=== PATIENT | female | born 1945 | race Caucasian/White ===

== ENCOUNTER 2019-04-02 15:40 | Inpatient (IN) | payer MEDICARE ==
--- NOTE | 2019-04-02 16:02 | ER Document Report ---
ED General - General Stated Complaint: ALTERED MENTAL STATUS Time Seen by Provider: 04/02/19 15:55 - HPI Notes: Patient is a 73-year-old female that presents to the emergency department for chief complaint of altered mental status. Patient arrived by EMS. Patient's is assisting with HPI. He states today she has had 3 near syncopal episodes. He does not believe she completely lost consciousness but he states that all 3 times she collapsed down onto a chair. He states her eyes rolled back in her head and she was not responding to shaking her for a few seconds. Patient then came to without postictal state, seizure activity or incontinence. states she was discharged about a week ago from hospitalization at [facility] in [facility] where she was treated for pneumonia. She wears 3 L oxygen over her tracheostomy daily and EMS states when they arrived she was 82% on these home 3 L. Patient is able to shake her head yes and no to answer questions now and states she has been feeling short of breath and more swollen recently. She denied any chest pain, fever, palpitations, abdominal pain, nausea, vomiting or diarrhea. She does not recall the syncopal episodes. EMS also states patient was difficult to wake with painful stimuli when they first arrived but while in route she improved in her mentation. Past Medical History: Reviewed in chart Past Surgical History: Tracheostomy Social History: Lives at home with family Family History: Reviewed and noncontributory for presenting illness Allergies: Reviewed, see documented allergy list. REVIEW OF SYSTEMS: CONSTITUTIONAL : No fever No chills No diaphoresis No recent illness EENT: No vision changes No congestion No sore throat CARDIOVASCULAR: No chest pain No palpitations Edema Syncope RESPIRATORY: shortness of breath No cough edema difficulty breathing GASTROINTESTINAL: No abdominal pain No nausea No vomiting No diarrhea GENITOURINARY: No dysuria No hematuria No difficulty urinating MUSCULOSKELETAL: No back pain No leg pain No arm pain SKIN: No rashes No lesions LYMPHATIC: No swollen, enlarged glands. NEUROLOGICAL: No lightheadedness No headache No weakness No paresthesias PSYCHIATRIC: No anxiety No depression PHYSICAL EXAMINATION: Vital signs reviewed, nursing noted reviewed. GENERAL: alert, ill-appearing, well-nourished and in no acute distress. HEAD: Atraumatic, normocephalic. EYES: Eyes appear normal, extraocular movements intact, sclera anicteric, c onjunctiva are normal. ENT: nares patent, oropharynx clear without exudates. Mildly dry mucous mem branes. NECK: Normal range of motion, supple without lymphadenopathy, tracheostomy patent without bleeding or drainage LUNGS: Breath sounds diminished to auscultation bilaterally, left diminished gr eater than right. Mild tachypnea without accessory muscle use or retractions HEART: Regular rate and rhythm without murmurs ABDOMEN: Soft, nontender, normoactive bowel sounds. No rebound, guarding, or rigidity. No masses appreciated. EXTREMITIES: Nontender, good range of motion, 3+ pitting edema bilateral lower extremities, symmetric. NEUROLOGICAL: No focal neurological deficits. Moves all extremities spontaneously Motor and sensory grossly intact on exam. PSYCH: Normal mood, normal affect. SKIN: Warm, Dry, normal turgor, no rashes or lesions noted on exposed skin - Related Data Allergies/Adverse Reactions: iodine Allergy (Verified 04/02/19 16:47) Past Medical History - Social History Smoking Status: Unknown if Ever Smoked Family History: Reviewed & Not Pertinent Physical Exam - Vital signs Vitals: Resp 11 L 04/02/19 15:45 Course - Re-evaluation Re-evalutation: 04/02/19 17:02 Vitals reviewed. Nursing notes reviewed. Patient is alert and shaking her head yes and no to questions. She is not verbal because of her tracheostomy. Patient was hypoxic at 82% on her home 3 L and was placed on tracheostomy mask in the ED. ABG shows no significant hypoxia or acid-base disturbance. Patient is meeting sepsis criteria with a white count of 16, tachypnea, and left lower lobe pneumonia on chest x-ray. She was given Rocephin and azithromycin for her pneumonia. Blood cultures have been obtained. Her lactic acid is normal. Patient has had a few low blood pressure readings however with repositioning of the blood pressure cuff with a have improved. She will receive IV fluid bolus for her sepsis. Patient's tracheostomy was suctioned which improved her work of breathing. Her EKG shows frequent ectopy and she has a slight elevation in her troponin at 0.066. The elevated troponin may be secondary to renal insufficiency or hypoxia. She has not had complaint of chest pain. Patient will be admitted to the hospital for further care. Her case was discussed with Dr. Peng who accepts admission. She is stable at time of admission. Laboratory 04/02/19 04/02/19 04/02/19 15:48 15:48 15:48 WBC 16.5 H RBC 5.62 H Hgb 10.1 L Hct 35.0 L MCV 62 L MCH 18.0 L MCHC 28.9 L RDW 33.5 H Plt Count 347 Lymph % (Auto) Not Reportable Glenn % (Auto) Not Reportable Eos % (Auto) Not Reportable Baso % (Auto) Not Reportable Absolute Neuts (auto) Not Reportable Absolute Lymphs (auto) Not Reportable Absolute Monos (auto) Not Reportable Absolute Eos (auto) Not Reportable Absolute Basos (auto) Not Reportable Total Counted 100 Seg Neutrophils % Not Reportable Seg Neuts % (Manual) 80 H Lymphocytes % (Manual) 6 L Monocytes % (Manual) 14 H Eosinophils % (Manual) 0 Basophils % (Manual) 0 Abs Neuts (Manual) 13.2 H Abs Lymphs (Manual) 1.0 Abs Monocytes (Manual) 2.3 H Absolute Eos (Manual) 0.0 Abs Basophils (Manual) 0.0 Toxic Vacuolation PRESENT Clumped Platelets PRESENT Platelet Comment ADEQUATE Hypochromasia 1+ Anisocytosis 3+ Microcytosis 3+ Target Cells 1+ Tear Drop Cells SLIGHT PT 14.2 INR 1.10 Carbonic Acid HCO3/H2CO3 Ratio ABG pH ABG pCO2 ABG pO2 ABG HCO3 ABG Total CO2 ABG O2 Saturation ABG Base Excess FiO2 Sodium 132.4 L Potassium 4.2 Chloride 97 L Carbon Dioxide 29 Anion Gap 6 BUN 53 H Creatinine 1.38 H Est GFR ( Amer) 45 L Est GFR (MDRD) Non-Af 37 L Glucose 83 POC Glucose Lactic Acid Calcium 9.1 Total Bilirubin 0.7 Direct Bilirubin 0.1 Neonat Total Bilirubin Not Reportable Neonat Direct Bilirubin Not Reportable Neonat Indirect Bili Not Reportable AST 31 ALT 21 Alkaline Phosphatase 40 Troponin I Total Protein 5.4 L Albumin 3.3 L 04/02/19 04/02/19 04/02/19 15:48 15:48 15:48 WBC RBC Hgb Hct MCV MCH MCHC RDW Plt Count Lymph % (Auto) Glenn % (Auto) Eos % (Auto) Baso % (Auto) Absolute Neuts (auto) Absolute Lymphs (auto) Absolute Monos (auto) Absolute Eos (auto) Absolute Basos (auto) Total Counted Seg Neutrophils % Seg Neuts % (Manual) Lymphocytes % (Manual) Monocytes % (Manual) Eosinophils % (Manual) Basophils % (Manual) Abs Neuts (Manual) Abs Lymphs (Manual) Abs Monocytes (Manual) Absolute Eos (Manual) Abs Basophils (Manual) Toxic Vacuolation Clumped Platelets Platelet Comment Hypochromasia Anisocytosis Microcytosis Target Cells Tear Drop Cells PT INR Carbonic Acid 1.18 HCO3/H2CO3 Ratio 21:1 ABG pH 7.43 ABG pCO2 39.3 ABG pO2 113.7 H ABG HCO3 25.6 H ABG Total CO2 26.8 H ABG O2 Saturation 98.3 H ABG Base Excess 1.3 FiO2 11L Sodium Potassium Chloride Carbon Dioxide Anion Gap BUN Creatinine Est GFR ( Amer) Est GFR (MDRD) Non-Af Glucose POC Glucose Lactic Acid 1.9 Calcium Total Bilirubin Direct Bilirubin Neonat Total Bilirubin Neonat Direct Bilirubin Neonat Indirect Bili AST ALT Alkaline Phosphatase Troponin I 0.066 Total Protein Albumin 04/02/19 16:08 WBC RBC Hgb Hct MCV MCH MCHC RDW Plt Count Lymph % (Auto) Glenn % (Auto) Eos % (Auto) Baso % (Auto) Absolute Neuts (auto) Absolute Lymphs (auto) Absolute Monos (auto) Absolute Eos (auto) Absolute Basos (auto) Total Counted Seg Neutrophils % Seg Neuts % (Manual) Lymphocytes % (Manual) Monocytes % (Manual) Eosinophils % (Manual) Basophils % (Manual) Abs Neuts (Manual) Abs Lymphs (Manual) Abs Monocytes (Manual) Absolute Eos (Manual) Abs Basophils (Manual) Toxic Vacuolation Clumped Platelets Platelet Comment Hypochromasia Anisocytosis Microcytosis Target Cells Tear Drop Cells PT INR Carbonic Acid HCO3/H2CO3 Ratio ABG pH ABG pCO2 ABG pO2 ABG HCO3 ABG Total CO2 ABG O2 Saturation ABG Base Excess FiO2 Sodium Potassium Chloride Carbon Dioxide Anion Gap BUN Creatinine Est GFR ( Amer) Est GFR (MDRD) Non-Af Glucose POC Glucose 96 Lactic Acid Calcium Total Bilirubin Direct Bilirubin Neonat Total Bilirubin Neonat Direct Bilirubin Neonat Indirect Bili AST ALT Alkaline Phosphatase Troponin I Total Protein Albumin Chest X-Ray 04/02/19 15:56 IMPRESSION: Heterogeneous opacity of the left lung base, which may reflect scarring or atelectasis as well as acute airspace disease. Cardiomegaly. - Vital Signs Vital signs: Temp Pulse Resp BP Pulse Ox 97.5 F 21 H 127/54 H 94 04/02/19 15:47 04/02/19 16:31 04/02/19 16:16 04/02/19 16:30 - Laboratory Result Diagrams: 04/02/19 15:48 04/02/19 15:48 Laboratory results interpreted by me: 04/02/19 04/02/19 04/02/19 15:48 15:48 15:48 WBC 16.5 H RBC 5.62 H Hgb 10.1 L Hct 35.0 L MCV 62 L MCH 18.0 L MCHC 28.9 L RDW 33.5 H Seg Neuts % (Manual) 80 H Lymphocytes % (Manual) 6 L Monocytes % (Manual) 14 H Abs Neuts (Manual) 13.2 H Abs Monocytes (Manual) 2.3 H ABG pO2 113.7 H ABG HCO3 25.6 H ABG Total CO2 26.8 H ABG O2 Saturation 98.3 H Sodium 132.4 L Chloride 97 L BUN 53 H Creatinine 1.38 H Est GFR ( Amer) 45 L Est GFR (MDRD) Non-Af 37 L Total Protein 5.4 L Albumin 3.3 L - EKG Interpretation by Me Additional EKG results interpreted by me: 04/02/19 16:02 Interpreted by myself Normal sinus rhythm, rate 80, frequent PVCs, no STEMI Discharge - Discharge Clinical Impression: Elevated troponin, Syncope and collapse, JOEL (acute kidney injury), Hyponatremia Pneumonia Qualifiers: Pneumonia type: due to unspecified organism Laterality: left Lung location: lower lobe of lung Qualified Code(s): J18.1 - Lobar pneumonia, unspecified organism Sepsis Qualifiers: Sepsis type: sepsis due to unspecified organism Sepsis acute organ dysfunction status: unspecified Qualified Code(s): A41.9 - Sepsis, unspecified organism Anemia Qualifiers: Anemia type: other cause Other causes of anemia: other cause, not classified Qualified Code(s): D64.89 - Other specified anemias Condition: Stable Disposition: ADMITTED INPATIENT Admitting Provider: Ginette (Hospitalist) Unit Admitted: [facility]
[2019-04-02 16:15] LABS: HEMOGLOBIN 10.1 g/dL (12.0-15.5); MEAN CORPUSCULAR HGB CONC 28.9 g/dL (32.0-36.0); PROTHROMBIN TIME 14.2 SEC (11.4-15.4); RED BLOOD COUNT 5.62 10^6/uL (3.72-5.28); RED CELL DISTRIBUTION WIDTH 33.5 % (11.5-14.0); WHITE BLOOD COUNT 16.5 10^3/uL (4.0-10.5)
[2019-04-02 16:29] LABS: ALBUMIN 3.3 g/dL (3.5-5.0); ALKALINE PHOSPHATASE 40 U/L (38-126); ANION GAP 6 (5-19); ASPARTATE AMINO TRANSFERASE 31 U/L (14-36); BILIRUBIN,DIRECT 0.1 mg/dL (0.0-0.4); BILIRUBIN,TOTAL 0.7 mg/dL (0.2-1.3); BLOOD UREA NITROGEN 53 mg/dL (7-20); CALCIUM 9.1 mg/dL (8.4-10.2); CARBON DIOXIDE 29 mmol/L (22-30); CHLORIDE 97 mmol/L (98-107); GLUCOSE 83 mg/dL (75-110); POTASSIUM 4.2 mmol/L (3.6-5.0); TOTAL PROTEIN 5.4 g/dL (6.3-8.2)
[2019-04-02 16:31] LABS: MEAN CORPUSCULAR VOLUME 62 fl (80-97)
--- NOTE | 2019-04-02 16:34 | RADIOLOGY REPORT (SQ) ---
EXAM DESCRIPTION: CHEST SINGLE VIEW COMPLETED DATE/TIME: 04/02/2019 4:21 pm REASON FOR STUDY: hypoxia COMPARISON: None. EXAM PARAMETERS: NUMBER OF VIEWS: One view. TECHNIQUE: Single frontal radiographic view of the chest acquired. RADIATION DOSE: NA LIMITATIONS: None. FINDINGS: LUNGS AND PLEURA: Heterogeneous opacity of the left lung base, which may reflect scarring or atelectasis as well as acute airspace disease. MEDIASTINUM AND HILAR STRUCTURES: No masses. Contour normal. HEART AND VASCULAR STRUCTURES: Cardiomegaly. BONES: No acute findings. HARDWARE: None in the chest. OTHER: No other significant finding. IMPRESSION: Heterogeneous opacity of the left lung base, which may reflect scarring or atelectasis a s well as acute airspace disease. Cardiomegaly. TECHNICAL DOCUMENTATION: JOB ID: [id number] [employer] All Rights Reserved Reading location - IP/workstation name: [email or web address]
[2019-04-02 16:35] LABS: ABSOLUTE MONOCYTES # (MANUAL) 2.3 10^3/uL (0.1-1.4); BASOPHILS % (MANUAL) 0 % (0-2); EOSINOPHILS % (MANUAL) 0 % (0-6); LYMPHOCYTES % (MANUAL) 6 % (13-45); MONOCYTES % (MANUAL) 14 % (3-13); SEGMENTED NEUTROPHILS % (MAN) 80 % (42-78); TOTAL CELLS COUNTED 100
[2019-04-02 16:39] LABS: ANISOCYTOSIS 3+; HYPOCHROMASIA 1+
[2019-04-02 16:40] LABS: PLATELET CLUMPS PRESENT; PLATELET COMMENT ADEQUATE; TARGET CELLS 1+; TOXIC VACUOLATION PRESENT
[2019-04-02 16:41] LABS: PLATELET COUNT 347 10^3/uL (150-450); TEAR DROP CELLS SLIGHT
[2019-04-02 16:43] LABS: ARTERIAL BLOOD BASE EXCESS 1.3 mmol/L; ARTERIAL BLOOD FIO2 11L; ARTERIAL BLOOD H2CO3 1.18 mmol/L (1.05-1.35); ARTERIAL BLOOD HCO3 25.6 mmol/L (20-24); ARTERIAL BLOOD O2 SATURATION 98.3 % (94-98); ARTERIAL BLOOD PCO2 39.3 mmHg (35-45); ARTERIAL BLOOD PH 7.43 (7.35-7.45); ARTERIAL BLOOD PO2 113.7 mmHg (80-100); ARTERIAL BLOOD TOTAL CO2 26.8 mmol/L (21-25)
[2019-04-02] MEDS ORDERED: ASPIRIN 81 MG TABLET, CHEWABLE PO ONE (16:49)
[2019-04-02] MEDS ORDERED: CEFTRIAXONE INJ 1000 MG VIAL IV ONE (16:50)
[2019-04-02] MEDS ORDERED: AZITHROMYCIN INJ 500 MG VIAL IV ONE (16:50)
[2019-04-02] MEDS ORDERED: NORMAL SALINE 1000 ML 1,000 ML IV ONE ×2 (16:57→17:01)
[2019-04-02] MEDS ORDERED: VANCOMYCIN HCL 0 MG in DEXTROSE 5%-WATER 250 ML IV NR (17:45)
[2019-04-02 17:46] LABS: APPEARANCE,URINE SLIGHTLY-CLOUDY; BILIRUBIN,URINE NEGATIVE (NEGATIVE); COLOR,URINE YELLOW; GLUCOSE, URINE NEGATIVE (NEGATIVE); KETONES,URINE NEGATIVE (NEGATIVE); LEUKOCYTE ESTERASE,URINE NEGATIVE (NEGATIVE); NITRITE,URINE NEGATIVE (NEGATIVE); PROTEIN,URINE NEGATIVE (NEGATIVE); URINE SPECIFIC GRAVITY 1.016; UROBILINOGEN,URINE NEGATIVE mg/dL (<2.0)
--- NOTE | 2019-04-02 18:23 | PDOC H&P ---
History of Present Illness Admission Date/PCP: 04/02/19 17:21 LAKISHA MORRIS MD Patient complains of: lethargy, presyncope History of Present Illness: LUZ MARIA OAKLEY is a 73 year old female with a past medical history of chronic respiratory failure, has a tracheostomy for a history of throat cancer, history of right lung cancer and another unrecalled cancer, hypertension and COPD who was brought in due to presyncopal episodes. Patient's son and are at bedside. Patient and her just recently moved to [place] from [place]. Patient was recently admitted in [place] for sepsis secondary to pneumonia. Family reports that she was on vasopressors and was in the ICU for a few days in [place]. She was discharged 3 days ago on oral antibiotics. says that patient almost passed out when he tried to stand her up to use the walker. Son says that she did not actually pass out or lose consciousness. Seems episodes were presyncopal rather than true syncope. Patient is happened 3 times today. Son says that on 1 of the episode, patient fell to the floor and hit her buttocks on the floor. Denies head injury. denies fever but reports that she did have some chills a few days ago. In the ER, she was noted to be hypotensive with the lowest blood pressure at 70/40. She was given a liter of bolus which significantly improved her blood pressures. Work-up was remarkable for significant leukocytosis and left lower lobe opacity, question of scarring versus new airspace disease. Social History Smoking Status: Unknown if Ever Smoked Family History Family History: Reviewed & Not Pertinent Parental Family History Reviewed: Yes - no premature CAD Children Family History Reviewed: No Sibling(s) Family History Reviewed.: No Medication/Allergy Allergies/Adverse Reactions: iodine Allergy (Verified 04/02/19 16:47) Review of Systems All systems: reviewed and no additional remarkable complaints except as stated - As mentioned in HPI Physical Exam Vital Signs: Temp Pulse Resp BP Pulse Ox 97.5 F 21 H 127/54 H 94 04/02/19 15:47 04/02/19 16:31 04/02/19 16:16 04/02/19 16:30 Intake & Output 04/01/19 04/02/19 04/03/19 06:59 06:59 06:59 Weight 146 lb 13.246 oz General appearance: PRESENT: no acute distress, well-developed, well-nourished Head exam: PRESENT: atraumatic, normocephalic Eye exam: PRESENT: conjunctiva pink, EOMI, PERRLA. ABSENT: scleral icterus Ear exam: PRESENT: normal external ear exam Mouth exam: PRESENT: moist, tongue midline Throat exam: PRESENT: other - Trach in place Neck exam: ABSENT: carotid bruit, JVD, lymphadenopathy, thyromegaly Respiratory exam: PRESENT: rhonchi. ABSENT: rales, wheezes Cardiovascular exam: PRESENT: RRR. ABSENT: diastolic murmur, rubs, systolic murmur Pulses: PRESENT: normal dorsalis pedis pul GI/Abdominal exam: PRESENT: normal bowel sounds, soft. ABSENT: distended, guarding, mass, organolmegaly, rebound, tenderness Extremities exam: PRESENT: +2 edema Neurological exam: PRESENT: alert, awake, oriented to person, oriented to place, oriented to time, oriented to situation, CN II-XII grossly intact. ABSENT: motor sensory deficit Results Laboratory Results: 04/02/19 15:48 04/02/19 15:48 04/02/19 04/02/19 04/02/19 15:48 15:48 15:48 WBC 16.5 H RBC 5.62 H Hgb 10.1 L Hct 35.0 L MCV 62 L MCH 18.0 L MCHC 28.9 L RDW 33.5 H Plt Count 347 Seg Neutrophils % Not Reportable Carbonic Acid HCO3/H2CO3 Ratio ABG pH ABG pCO2 ABG pO2 ABG HCO3 ABG O2 Saturation ABG Base Excess FiO2 Sodium 132.4 L Potassium 4.2 Chloride 97 L Carbon Dioxide 29 Anion Gap 6 BUN 53 H Creatinine 1.38 H Est GFR ( Amer) 45 L Glucose 83 Lactic Acid 1.9 Calcium 9.1 Total Bilirubin 0.7 AST 31 Alkaline Phosphatase 40 Total Protein 5.4 L Albumin 3.3 L 04/02/19 15:48 WBC RBC Hgb Hct MCV MCH MCHC RDW Plt Count Seg Neutrophils % Carbonic Acid 1.18 HCO3/H2CO3 Ratio 21:1 ABG pH 7.43 ABG pCO2 39.3 ABG pO2 113.7 H ABG HCO3 25.6 H ABG O2 Saturation 98.3 H ABG Base Excess 1.3 FiO2 11L Sodium Potassium Chloride Carbon Dioxide Anion Gap BUN Creatinine Est GFR ( Amer) Glucose Lactic Acid Calcium Total Bilirubin AST Alkaline Phosphatase Total Protein Albumin 04/02/19 15:48 Troponin I 0.066 Impressions: Chest X-Ray 04/02/19 15:56 IMPRESSION: Heterogeneous opacity of the left lung base, which may reflect sca rring or atelectasis as well as acute airspace disease. Cardiomegaly. Assessment and Plan - Diagnosis (1) Severe sepsis Is this a current diagnosis for this admission?: Yes Plan: Likely secondary to left-sided pneumonia. Possible H CAP. Will start patient on vancomycin and cefepime. Will order blood culture and sputum culture. Blood pressures have improved after fluid bolus. Request records from [place] for recent hospitalization. (2) Pneumonia Qualifiers: Pneumonia type: due to unspecified organism Laterality: left Lung location: lower lobe of lung Qualified Code(s): J18.1 - Lobar pneumonia, unspecified organism Is this a current diagnosis for this admission?: Yes Plan: Possible HCAP. Antibiotics as mentioned #1. (3) JOEL (acute kidney injury) Is this a current diagnosis for this admission?: Yes Plan: Question if this is JOEL or CKD. No baseline creatinine on records. Will request records. (4) Fall Is this a current diagnosis for this admission?: Yes Plan: Presyncopal episodes were likely related to hypotension. Will order a trauma work-up as family did report she fell on the ground on one of the episodes. - Time Time Spent with patient: 25-34 minutes
--- NOTE | 2019-04-02 18:27 | ADVANCED CARE ---
- Diagnosis (1) Severe sepsis Diagnosis Current: Yes (2) Fall Diagnosis Current: Yes (3) Pneumonia Diagnosis Current: Yes Resuscitation Status: Full Code Discussion: Discussed with /POA on bedside. Also asked patient who is able to mouth words. Patient is a full code at this time. She mouthed that she wants everything done and when further clarified she prefers to receive chest compr essions, defibrillation or be connected to the ventilator if the need arises. Her son later mentions that patient has refused further cancer treatments 2 years ago but is not amenable to hospice transition at this time. Patient points to her on the bedside to be her surrogate medical decision maker.
[2019-04-02] MEDS: CEFEPIME 1 GM/D5W RTU 1 GM/50 ML RTUPB IV SCH (18:46)
[2019-04-02] MEDS ORDERED: VANCOMYCIN HCL INJ 1000 MG VIAL IV PRN (19:23)
[2019-04-02] MEDS ORDERED: VANCOMYCIN HCL 1,250 MG in DEXTROSE 5%-WATER 250 ML IV ONE (19:30)
--- NOTE | 2019-04-02 19:53 | RADIOLOGY REPORT (SQ) ---
EXAM DESCRIPTION: HIP RIGHT AP/LATERAL COMPLETED DATE/TIME: 04/02/2019 6:29 pm REASON FOR STUDY: fall. right hip pain COMPARISON: None. NUMBER OF VIEWS: Two views. TECHNIQUE: AP pelvis and additional frog-leg view of the right hip. LIMITATIONS: None. FINDINGS: MINERALIZATION: Normal. RIGHT HIP: No fracture or dislocation. No worrisome bone lesions. LEFT HIP: No fracture or dislocation. No worrisome bone lesions. PUBIS AND ISCHIUM: No fracture. PELVIS: No fracture. SACRUM: No fracture or dislocation. No worrisome bone lesions. LOWER LUMBAR SPINE: Lumbar spondylosis with scoliosis convex right. SOFT TISSUES: No findings. OTHER: Julien catheter in place. IMPRESSION: No acute fracture identified. TECHNICAL DOCUMENTATION: JOB ID: [id number] [employer]- All Rights Reserved Reading location - IP/workstation name: [email or web address]
--- NOTE | 2019-04-02 20:19 | RADIOLOGY REPORT (SQ) ---
EXAM DESCRIPTION: [facility]: CT LUMBAR SPINE WITHOUT IV CONTRAST CLINICAL HISTORY: 73 years Female; FALL/LUMBAR PAIN TECHNIQUE: Noncontrast lumbar spine CT with sagittal and coronal reconstructions. All CT scans at this facility use dose modulation, iterative reconstruction, and/or weight based dosing when appropriate to reduce radiation dose to as low as reasonably achievable. COMPARISON: None. FINDINGS: L2: Old inferior endplate fracture with less than 20% anterior loss of height. There is also an old L3 superior endplate fracture. There is 2 to 3 mm retropulsion of both the L2 and L3 fractures, without significant central canal compromise. No subluxation. L3-L4: Severe disc space narrowing with endplate sclerosis and irregularity. No subluxation. Moderate left foraminal stenosis. L4-L5: Mild disc bulging. Bilateral facet arthropathy. No subluxation. L5-S1: Severe disc space narrowing. Moderate facet arthropathy. No subluxation. No acute fracture. No epidural hematoma. Large left renal cyst is partially visualized. Colonic diverticulosis is partially visualized. IMPRESSION: 1. No acute fracture of lumbar spine. 2. Old L2-L3 fracture and other chronic degenerative changes as described.
--- NOTE | 2019-04-02 20:20 | RADIOLOGY REPORT (SQ) ---
EXAM DESCRIPTION: CT chest without contrast CLINICAL HISTORY: 73 years Female, further assess infiltrates COMPARISON: None. TECHNIQUE: Axial images of the chest were performed without the use of intravenous contrast, with sagittal and coronal reformatted images. This exam was performed according to our departmental dose-optimization program which includes use of Automated Exposure Control, adjustment of the mA and/or kV according to patient size and/or use of iterative reconstruction technique. FINDINGS: There are small bilateral pleural effusions. There is patchy bibasilar atelectasis/infiltrate. There is emphysema. There is mild cardiomegaly. There is coronary artery calcification. There are atherosclerotic changes involving the thoracic aorta, but there is no aneurysm. IMPRESSION: Small bilateral pleural effusions. Patchy bibasilar atelectasis/infiltrate. Pneumonia is a consideration. Emphysema. Coronary artery calcification with mild cardiomegaly.
[2019-04-02] MEDS ORDERED: NORMAL SALINE 500 ML IV ONE (21:00)
[2019-04-02] MEDS: ACETAMINOPHEN 325 MG TABLET PO PRN (21:25)
[2019-04-02] MEDS: HEPARIN SOD (PORCINE) 5,000 UNIT/ML 1 ML VIAL SUBCUT SCH (21:25)
--- NOTE | 2019-04-02 21:30 | EKG REPORT ---
SEVERITY:- ABNORMAL ECG - SINUS RHYTHM PAIRED VENTRICULAR PREMATURE COMPLEXES ABERRANT COMPLEX, POSSIBLY SUPRAVENTRICULAR BORDERLINE T WAVE ABNORMALITIES : Confirmed by: Marcela Limon MD 02-Apr-2019 21:29:58
[2019-04-03] MEDS ORDERED: NORMAL SALINE 1000 ML 1,000 ML IV ONE (00:15)
[2019-04-03] MEDS ORDERED: HYDROCORTISONE SOD SUCCINATE INJ/PF 100 MG/2 ML SDV IV ONE (00:15)
[2019-04-03] MEDS ORDERED: INFLUENZA QUAD (6MOS+) 2019-20 VAC 0.5 ML SYR IM ONE (02:24)
[2019-04-03] MEDS: CEFEPIME 1 GM/D5W RTU 1 GM/50 ML RTUPB IV SCH ×2 (07:12→17:43)
[2019-04-03 08:48] LABS: HEMATOCRIT 31.8 % (36.0-47.0); HEMOGLOBIN 9.5 g/dL (12.0-15.5); MEAN CORPUSCULAR HEMOGLOBIN 18.5 pg (27.0-33.4); MEAN CORPUSCULAR VOLUME 62 fl (80-97); PLATELET COUNT 328 10^3/uL (150-450); RED BLOOD COUNT 5.15 10^6/uL (3.72-5.28); RED CELL DISTRIBUTION WIDTH 34.1 % (11.5-14.0); WHITE BLOOD COUNT 9.3 10^3/uL (4.0-10.5)
[2019-04-03 09:11] LABS: ANION GAP 7 (5-19); BLOOD UREA NITROGEN 34 mg/dL (7-20); CALCIUM 7.8 mg/dL (8.4-10.2); CARBON DIOXIDE 24 mmol/L (22-30); CHLORIDE 105 mmol/L (98-107); GLUCOSE 85 mg/dL (75-110); POTASSIUM 3.6 mmol/L (3.6-5.0)
[2019-04-03 09:14] LABS: ABSOLUTE LYMPHOCYTES# (MANUAL) 0.5 10^3/uL (0.5-4.7); ABSOLUTE MONOCYTES # (MANUAL) 0.1 10^3/uL (0.1-1.4); BASOPHILS % (MANUAL) 0 % (0-2); EOSINOPHILS % (MANUAL) 0 % (0-6); LYMPHOCYTES % (MANUAL) 5 % (13-45); MONOCYTES % (MANUAL) 1 % (3-13); SEGMENTED NEUTROPHILS % (MAN) 94 % (42-78); TOTAL CELLS COUNTED 100
[2019-04-03] MEDS: IPRATROPIUM/ALBUTEROL 0.5-2.5 MG/3 ML AMPUL NEB PRN (09:21)
[2019-04-03 09:28] LABS: HYPOCHROMASIA 2+
[2019-04-03 09:29] LABS: ANISOCYTOSIS 4+; PLATELET COMMENT ADEQUATE; TARGET CELLS 1+
[2019-04-03 09:30] LABS: HYPERSEGMENTED NEUTROPHILS PRESENT
[2019-04-03] MEDS: HEPARIN SOD (PORCINE) 5,000 UNIT/ML 1 ML VIAL SUBCUT SCH ×2 (11:25→21:59)
--- NOTE | 2019-04-03 12:44 | PDOC PROGRESS REPORT ---
Subjective Progress Note for:: 04/03/19 Subjective:: Is a 73-year-old female was admitted for sepsis secondary to HCAP. Overnight, patient's blood pressure trended down to the 80s systolic. She was given another bolus of fluids which did improve her blood pressures. No fever or chills. Upon encounter, she is not in distress. Her O2 requirement has not significantly increased. Blood pressures have improved to 110 systolic. Reason For Visit: HCAP Physical Exam Vital Signs: Temp Pulse Resp BP Pulse Ox 97.2 F 82 18 131/93 H 97 04/03/19 11:06 04/03/19 11:06 04/03/19 11:06 04/03/19 11:06 04/03/19 11:06 Intake & Output 04/02/19 04/03/19 04/04/19 06:59 06:59 06:59 Intake Total 2800 350 Output Total 1550 Balance 1250 350 Weight 156 lb 4.924 oz General appearance: PRESENT: no acute distress, well-developed, well-nourished Head exam: PRESENT: atraumatic, normocephalic Eye exam: PRESENT: conjunctiva pink, EOMI, PERRLA. ABSENT: scleral icterus Ear exam: PRESENT: normal external ear exam Mouth exam: PRESENT: moist, tongue midline Neck exam: ABSENT: carotid bruit, JVD, lymphadenopathy, thyromegaly Respiratory exam: PRESENT: rhonchi. ABSENT: rales, wheezes Cardiovascular exam: PRESENT: RRR. ABSENT: diastolic murmur, rubs, systolic murmur Pulses: PRESENT: normal dorsalis pedis pul GI/Abdominal exam: PRESENT: normal bowel sounds, soft. ABSENT: distended, guarding, mass, organolmegaly, rebound, tenderness Rectal exam: PRESENT: deferred Extremities exam: PRESENT: +2 edema Neurological exam: PRESENT: alert, awake, oriented to person, oriented to place, oriented to time, oriented to situation, CN II-XII grossly intact. ABSENT: motor sensory deficit Results Laboratory Results: 04/03/19 08:13 04/03/19 08:13 04/02/19 04/02/19 04/02/19 15:48 15:48 15:48 WBC 16.5 H RBC 5.62 H Hgb 10.1 L Hct 35.0 L MCV 62 L MCH 18.0 L MCHC 28.9 L RDW 33.5 H Plt Count 347 Seg Neutrophils % Not Reportable Carbonic Acid HCO3/H2CO3 Ratio ABG pH ABG pCO2 ABG pO2 ABG HCO3 ABG O2 Saturation ABG Base Excess FiO2 Sodium 132.4 L Potassium 4.2 Chloride 97 L Carbon Dioxide 29 Anion Gap 6 BUN 53 H Creatinine 1.38 H Est GFR ( Amer) 45 L Glucose 83 Lactic Acid 1.9 Calcium 9.1 Magnesium Total Bilirubin 0.7 AST 31 Alkaline Phosphatase 40 Total Protein 5.4 L Albumin 3.3 L Urine Color Urine Appearance Urine pH Ur Specific [place] Urine Protein Urine Glucose (UA) Urine Ketones Urine Blood Urine Nitrite Ur Leukocyte Esterase Urine WBC (Auto) Urine RBC (Auto) 04/02/19 04/02/19 04/02/19 15:48 15:48 17:20 WBC RBC Hgb Hct MCV MCH MCHC RDW Plt Count Seg Neutrophils % Carbonic Acid 1.18 HCO3/H2CO3 Ratio 21:1 ABG pH 7.43 ABG pCO2 39.3 ABG pO2 113.7 H ABG HCO3 25.6 H ABG O2 Saturation 98.3 H ABG Base Excess 1.3 FiO2 11L Sodium Potassium Chloride Carbon Dioxide Anion Gap BUN Creatinine Est GFR ( Amer) Glucose Lactic Acid Calcium Magnesium 2.4 H Total Bilirubin AST Alkaline Phosphatase Total Protein Albumin Urine Color YELLOW Urine Appearance SLIGHTLY-CLOUDY Urine pH 6.0 Ur Specific [place] 1.016 Urine Protein NEGATIVE Urine Glucose (UA) NEGATIVE Urine Ketones NEGATIVE Urine Blood NEGATIVE Urine Nitrite NEGATIVE Ur Leukocyte Esterase NEGATIVE Urine WBC (Auto) 2 Urine RBC (Auto) 1 04/03/19 04/03/19 04/03/19 08:13 08:13 09:05 WBC 9.3 RBC 5.15 Hgb 9.5 L Hct 31.8 L MCV 62 L MCH 18.5 L MCHC 30.0 L RDW 34.1 H Plt Count 328 Seg Neutrophils % Not Reportable Carbonic Acid HCO3/H2CO3 Ratio ABG pH ABG pCO2 ABG pO2 ABG HCO3 ABG O2 Saturation ABG Base Excess FiO2 Sodium 136.0 L Potassium 3.6 Chloride 105 Carbon Dioxide 24 Anion Gap 7 BUN 34 H Creatinine 0.79 Est GFR ( Amer) > 60 Glucose 85 Lactic Acid 0.7 Calcium 7.8 L Magnesium Total Bilirubin AST Alkaline Phosphatase Total Protein Albumin Urine Color Urine Appearance Urine pH Ur Specific [place] Urine Protein Urine Glucose (UA) Urine Ketones Urine Blood Urine Nitrite Ur Leukocyte Esterase Urine WBC (Auto) Urine RBC (Auto) 04/02/19 15:48 Troponin I 0.066 Impressions: Lumbar Spine CT 04/02/19 00:00 IMPRESSION: 1. No acute fracture of lumbar spine. 2. Old L2-L3 fracture and other chronic degenerative changes as described. Chest X-Ray 04/02/19 15:56 IMPRESSION: Heterogeneous opacity of the left lung base, which may reflect scarring or atelectasis as well as acute airspace disease. Cardiomegaly. Chest CT 04/02/19 17:37 IMPRESSION: Small bilateral pleural effusions. Patchy bibasilar atelectasis/infiltrate. Pneumonia is a consideration. Emphysema. Coronary artery calcification with mild cardiomegaly. Hip/Pelvis X-Ray 04/02/19 17:39 IMPRESSION: No acute fracture identified. Assessment and Plan - Diagnosis (1) Severe sepsis Is this a current diagnosis for this admission?: Yes Plan: Likely secondary to left-sided pneumonia. Possible HCAP. 04/03: Continue IV antibiotics. Blood pressures have improved with another bolus earlier this morning. Blood cultures and sputum cultures pending. (2) Pneumonia Qualifiers: Pneumonia type: due to unspecified organism Laterality: left Lung location: lower lobe of lung Qualified Code(s): J18.1 - Lobar pneumonia, unspecified organism Is this a current diagnosis for this admission?: Yes Plan: Possible HCAP. Antibiotics as mentioned #1. (3) Fall Is this a current diagnosis for this admission?: Yes Plan: Presyncopal episodes were likely related to hypotension. Trauma work-up negative. (4) JOEL (acute kidney injury) Is this a current diagnosis for this admission?: Yes Plan: Creatinine has significantly improved downt o 0.79 with IV fluids. - Time Time Spent with patient: 25-34 minutes
[2019-04-03] MEDS: ACETAMINOPHEN 325 MG TABLET PO PRN ×2 (12:50→19:02)
[2019-04-03] MEDS: VANCOMYCIN HCL 1,250 MG in DEXTROSE 5%-WATER 250 ML IV SCH (17:44)
[2019-04-03] MEDS ORDERED: PREGABALIN 50 MG CAPSULE PO ONE (20:45)
[2019-04-03] MEDS: ALPRAZOLAM 0.25 MG TABLET PO PRN (21:45)
[2019-04-04] MEDS: ACETAMINOPHEN 325 MG TABLET PO PRN ×2 (03:37→21:44)
[2019-04-04] MEDS: CEFEPIME 1 GM/D5W RTU 1 GM/50 ML RTUPB IV SCH ×2 (07:10→17:04)
[2019-04-04] MEDS: IPRATROPIUM/ALBUTEROL 0.5-2.5 MG/3 ML AMPUL NEB PRN (08:18)
[2019-04-04] MEDS: HEPARIN SOD (PORCINE) 5,000 UNIT/ML 1 ML VIAL SUBCUT SCH ×2 (10:04→21:44)
[2019-04-04] MEDS: PREGABALIN 50 MG CAPSULE PO SCH ×2 (10:04→21:44)
[2019-04-04 12:23] LABS: PATH REVIEW PATHOLOGIST REVIEWED
[2019-04-04 12:23] LABS: PATH REVIEW PATHOLOGIST REVIEWED
--- NOTE | 2019-04-04 12:33 | PDOC PROGRESS REPORT ---
Subjective Progress Note for:: 04/04/19 Subjective:: This is a 73-year-old female was admitted for sepsis secondary to HCAP. 04/03: Overnight, patient's blood pressure trended down to the 80s systolic. She was given another bolus of fluids which did improve her blood pressures. No fever or chills. Upon encounter, she is not in distress. Her O2 requirement has not significantly increased. Blood pressures have improved to 110 systolic. 04/04: Patient had transient episode of restlessness complaining of a flare of her chronic leg and feet pain. Her home Xanax and pregabalin will resume. Upon encounter, patient is comfortable. Blood pressures are on the low normal end but has improved compared to yesterday's trends. Reason For Visit: HCAP Physical Exam Vital Signs: Temp Pulse Resp BP Pulse Ox 97.7 F 73 14 127/50 H 98 04/04/19 04:16 04/04/19 08:21 04/04/19 08:21 04/04/19 04:16 04/04/19 08:21 Intake & Output 04/03/19 04/04/19 04/05/19 06:59 06:59 06:59 Intake Total 2800 890 Output Total 1550 450 Balance 1250 440 Weight 156 lb 4.924 oz 154 lb 5.177 oz General appearance: PRESENT: no acute distress, well-developed, well-nourished Head exam: PRESENT: atraumatic, normocephalic Eye exam: PRESENT: conjunctiva pink, EOMI, PERRLA. ABSENT: scleral icterus Ear exam: PRESENT: normal external ear exam Mouth exam: PRESENT: moist, tongue midline Neck exam: ABSENT: carotid bruit, JVD, lymphadenopathy, thyromegaly Respiratory exam: PRESENT: rhonchi. ABSENT: rales, wheezes Cardiovascular exam: PRESENT: RRR. ABSENT: diastolic murmur, rubs, systolic murmur Pulses: PRESENT: normal dorsalis pedis pul GI/Abdominal exam: PRESENT: normal bowel sounds, soft. ABSENT: distended, guarding, mass, organolmegaly, rebound, tenderness Rectal exam: PRESENT: deferred Neurological exam: PRESENT: alert, awake, oriented to person, oriented to place, oriented to time, oriented to situation, CN II-XII grossly intact. ABSENT: motor sensory deficit Results Laboratory Results: 04/03/19 08:13 04/03/19 08:13 04/02/19 04/03/19 15:48 13:26 Troponin I 0.066 NT-Pro-B Natriuret Pep 1100 H Impressions: Lumbar Spine CT 04/02/19 00:00 IMPRESSION: 1. No acute fracture of lumbar spine. 2. Old L2-L3 fracture and other chronic degenerative changes as described. Chest X-Ray 04/02/19 15:56 IMPRESSION: Heterogeneous opacity of the left lung base, which may reflect scarring or atelectasis as well as acute airspace disease. Cardiomegaly. Chest CT 04/02/19 17:37 IMPRESSION: Small bilateral pleural effusions. Patchy bibasilar atelectasis/infiltrate. Pneumonia is a consideration. Emphysema. Coronary artery calcification with mild cardiomegaly. Hip/Pelvis X-Ray 04/02/19 17:39 IMPRESSION: No acute fracture identified. Assessment and Plan - Diagnosis (1) Severe sepsis Is this a current diagnosis for this admission?: Yes Plan: Likely secondary to left-sided pneumonia. Possible HCAP. 04/03: Continue IV antibiotics. Blood pressures have improved with another bolus earlier this morning. Blood cultures and sputum cultures pending. 04/04: Blood pressures improved. (2) Pneumonia Qualifiers: Pneumonia type: due to unspecified organism Laterality: left Lung location: lower lobe of lung Qualified Code(s): J18.1 - Lobar pneumonia, unspecified organism Is this a current diagnosis for this admission?: Yes Plan: Possible HCAP. Antibiotics as mentioned #1. (3) Fall Is this a current diagnosis for this admission?: Yes Plan: Presyncopal episodes were likely related to hypotension. Trauma work-up negative. (4) JOEL (acute kidney injury) Is this a current diagnosis for this admission?: Yes Plan: Creatinine has significantly improved downt o 0.79 with IV fluids. - Time Time Spent with patient: 25-34 minutes
--- NOTE | 2019-04-04 13:37 | RADIOLOGY REPORT (SQ) ---
EXAM DESCRIPTION: CHEST SINGLE VIEW COMPLETED DATE/TIME: 04/04/2019 1:18 pm REASON FOR STUDY: SOB, RECENT TRAVEL (ALSO FOR VQ SCAN ECHO) COMPARISON: AP VIEW OF THE CHEST FROM 04/02/2019. EXAM PARAMETERS: NUMBER OF VIEWS: One view. TECHNIQUE: Single frontal radiographic view of the chest acquired. RADIATION DOSE: NA LIMITATIONS: None. FINDINGS: LUNGS AND PLEURA: Unchanged pleural and interstitial opacities in the left base that obscu re the contour of the left hemidiaphragm and blunt the left costophrenic sulcus. The right costophre yosi sulcus is also blunted. The pruned appearance of the vasculature in the upper lobes is consistent with COPD. The patchy opacities in the right base are nonspecific and could represent atelectasis. There is no pneumothorax. MEDIASTINUM AND HILAR STRUCTURES: Stable mediastinal and hilar contours. HEART AND VASCULAR STRUCTURES: Stable cardiomegaly. BONES: No acute findings. HARDWARE: Stable mediastinal surgical clips OTHER: No other finding. IMPRESSION: Unchanged radiographic appearance of the chest with asymmetric bibasilar opacities as de tailed above. TECHNICAL DOCUMENTATION: JOB ID: [id number] [employer]- All Rights Reserved Reading location - IP/workstation name: [email or web address]
--- NOTE | 2019-04-04 13:46 | RADIOLOGY REPORT (SQ) ---
EXAM DESCRIPTION: NM LUNG PERFUSION SCAN COMPLETED DATE/TIME: 04/04/2019 1:29 pm REASON FOR STUDY: SOB, recent long distance travel COMPARISON: Same day chest radiograph RADIONUCLIDE AND DOSE: 5.45 millicuries TC-99m MAA The route of agent administration: Intravenous TECHNIQUE: Eight views of the lungs acquired following injection of MAA. LIMITATIONS: None. FINDINGS: PERFUSION: Generally homogeneous pulmonary perfusion, with a subtle defect at the left oliva g base corresponding to findings small left pleural effusion and heterogeneous opacity left lung base seen on comparison radiograph. OTHER: No other significant finding. IMPRESSION: Generally homogeneous pulmonary perfusion, with a subtle defect at the left lung base co rresponding to findings small left pleural effusion and heterogeneous opacity left lung base seen on comparison radiograph. Radiograph matched left basilar nonsegmental defect on perfusion only nuclea r scintigraphic lung scan, no specific findings to suggest pulmonary embolism. TECHNICAL DOCUMENTATION: JOB ID: [id number] [employer]- All Rights Reserved Reading location - IP/workstation name: [email or web address]
[2019-04-04] MEDS: VANCOMYCIN HCL 1,250 MG in DEXTROSE 5%-WATER 250 ML IV SCH (17:46)
--- NOTE | 2019-04-04 19:28 | XCELERA REPORT ---
[address] [address] Transthoracic Echocardiogram Report Name: LUZ MARIA OAKLEY Age: 73 yrs Gender: Female : 1945 Patient Status: Inpatient Patient Location: [address] [place], [place] [id number] Study Date: 04/04/2019 10:57 AM Height: 64 in Weight: 154 lb BSA: 1.8 m2 Procedure: A two-dimensional transthoracic echocardiogram with color flow and Doppler was performed. The study was technically limited with all images being suboptimal in quality. Reason For Study: SOB, 3+bipedal edema, elev BNP / CHF History: SOB, 3+bipedal edema, elev BNP / CHF. Ordering Physician: LAKISHA MORRIS Performed By: Veronica Fraser Interpretation Summary The left ventricle is borderline dilated. There is normal left ventricular wall thickness. LV EF is 60% The left ventricular ejection fraction is within normal limits. Doppler measurements suggest impaired left ventricular relaxation, which is associated with grade I/IV or mild diastolic dysfunction The left ventricular wall motion is normal. There is no thrombus. cannoi assess VSD,ASD ,or PFO. The right atrium is mildly dilated. The left atrium is mildly dilated. There is no evidence of mitral valve prolapse. There is no vegetation seen on the mitral valve. There is no mitral valve stenosis. There is a mild amount of mitral regurgitation There is no aortic valvular vegetation. There is aortic sclerosis without aortic stenosis. There is no LVOT obstruction. There is a trace amount of aortic regurgitation There is no tricuspid stenosis. There is a mild amount of tricuspid regurgitation There is mild pulmonary hypertension by echo RVSP is 33 mmof Hg , with RA mean of 10. There is no pulmonic valvular stenosis. There is a mild to moderate amount of pulmonic regurgitation The aortic root is normal size. The inferior vena cava was not visualized There is no pericardial effusion. MMode/2D Measurements & Calculations RVDd: 3.4 cm LVIDd: 5.2 cm FS: 38.8 % Ao root diam: 2.7 cm IVSd: 1.1 cm LVIDs: 3.2 cm EDV(Teich): 128.1 ml Ao root area: 5.8 cm2 LVPWd: 1.0 cm ESV(Teich): 40.0 ml EF(Teich): 68.8 % Doppler Measurements & Calculations MV E max juan miguel: MV dec slope: Ao V2 max: LV V1 max P.1 cm/sec 183.6 cm/sec2 150.0 cm/sec 3.0 mmHg MV A max juan miguel: MV dec time: Ao max P.0 mmHgLV V1 max: 81.3 cm/sec 0.29 sec 86.1 cm/sec MV E/A: 0.66 MR max juan miguel: PA V2 max: PI end-d juan miguel: TR max juan miguel: 417.8 cm/sec 72.3 cm/sec 127.2 cm/sec 241.7 cm/sec MR max PG: PA max P.1 mmHg TR max P.8 mmHg 23.4 mmHg Left Ventricle The left ventricle is borderline dilated. There is normal left ventricular wall thickness. LV EF is 60%. The left ventricular ejection fraction is within normal limits. Doppler measurements suggest impaired left ventricular relaxation, which is associated with grade I/IV or mild diastolic dysfunction. The left ventricular wall motion is normal. There is no thrombus. cannoi assess VSD,ASD ,or PFO. Right Ventricle The right ventricle is mildly dilated. Atria The right atrium is mildly dilated. The left atrium is mildly dilated. Mitral Valve There is no evidence of mitral valve prolapse. There is no vegetation seen on the mitral valve. There is no mitral valve stenosis. There is a mild amount of mitral regurgitation. Aortic Valve There is no aortic valvular vegetation. There is aortic sclerosis without aortic stenosis. There is no LVOT obstruction. There is a trace amount of aortic regurgitation. Tricuspid Valve There is no tricuspid stenosis. There is a mild amount of tricuspid regurgitation. There is mild pulmonary hypertension by echo. RVSP is 33 mmof Hg , with RA mean of 10. Pulmonic Valve There is no pulmonic valvular stenosis. There is a mild to moderate amount of pulmonic regurgitation. Great Vessels The aortic root is normal size. The inferior vena cava was not visualized. Effusions There is no pericardial effusion. : LAKISHA MORRIS Lakshmi
[2019-04-04] MEDS: ALPRAZOLAM 0.25 MG TABLET PO PRN (21:45)
[2019-04-05] MEDS: CEFEPIME 1 GM/D5W RTU 1 GM/50 ML RTUPB IV SCH ×2 (06:46→17:41)
--- NOTE | 2019-04-05 07:46 | PDOC PROGRESS REPORT ---
Subjective Progress Note for:: 04/05/19 Subjective:: 04/05/2019-no complaints this a.m. Reason For Visit: HCAP Physical Exam Vital Signs: Temp Pulse Resp BP Pulse Ox 98 F 78 18 108/60 98 04/05/19 04:00 04/05/19 04:00 04/05/19 04:00 04/05/19 04:00 04/05/19 04:30 Intake & Output 04/04/19 04/05/19 04/06/19 06:59 06:59 06:59 Intake Total 890 1750 Output Total 450 400 Balance 440 1350 Weight 70 kg 76.4 kg General appearance: PRESENT: no acute distress, well-developed, well-nourished Neck exam: ABSENT: carotid bruit, JVD, lymphadenopathy, thyromegaly Respiratory exam: PRESENT: decreased breath sounds, symmetrical, unlabored, other - Tracheostomy Cardiovascular exam: PRESENT: RRR. ABSENT: diastolic murmur, rubs, systolic murmur Pulses: PRESENT: +1 pedal pulses bilateral GI/Abdominal exam: PRESENT: normal bowel sounds, soft. ABSENT: distended, guarding, mass, organolmegaly, rebound, tenderness Extremities exam: PRESENT: full ROM. ABSENT: calf tenderness, clubbing, pedal edema Neurological exam: PRESENT: alert, awake, oriented to person, oriented to place, oriented to time, oriented to situation, CN II-XII grossly intact. ABSENT: motor sensory deficit Psychiatric exam: PRESENT: appropriate affect, normal mood. ABSENT: homicidal ideation, suicidal ideation Skin exam: PRESENT: dry, intact, warm. ABSENT: cyanosis, rash Results Laboratory Results: 04/03/19 08:13 04/03/19 08:13 04/02/19 04/03/19 15:48 13:26 Troponin I 0.066 NT-Pro-B Natriuret Pep 1100 H Impressions: Lumbar Spine CT 04/02/19 00:00 IMPRESSION: 1. No acute fracture of lumbar spine. 2. Old L2-L3 fracture and other chronic degenerative changes as described. Chest CT 04/02/19 17:37 IMPRESSION: Small bilateral pleural effusions. Patchy bibasilar atelectasis/infiltrate. Pneumonia is a consideration. Emphysema. Coronary artery calcification with mild cardiomegaly. Hip/Pelvis X-Ray 04/02/19 17:39 IMPRESSION: No acute fracture identified. Chest X-Ray 04/04/19 00:00 IMPRESSION: Unchanged radiographic appearance of the chest with asymmetric bibasilar opacities as detailed above. Lung Scan-VQ NM 04/04/19 09:06 IMPRESSION: Generally homogeneous pulmonary perfusion, with a subtle defect at the left lung base corresponding to findings small left pleural effusion and heterogeneous opacity left lung base seen on comparison radiograph. Radiograph matched left basilar nonsegmental defect on perfusion only nuclear scintigraphic lung scan, no specific findings to suggest pulmonary embolism. Assessment and Plan - Diagnosis (1) Severe sepsis Is this a current diagnosis for this admission?: Yes Plan: Likely secondary to left-sided pneumonia. Possible HCAP. 04/03: Continue IV antibiotics. Blood pressures have improved with another bolus earlier this morning. Blood cultures and sputum cultures pending. 04/04: Blood pressures improved. 04/05/2019-stable. Continue to follow. Blood pressure is normalized at this point. Patient continues on vancomycin and cefepime. Awaiting cultures. (2) Pneumonia Qualifiers: Pneumonia type: due to unspecified organism Laterality: left Lung location: lower lobe of lung Qualified Code(s): J18.1 - Lobar pneumonia, unspecified organism Is this a current diagnosis for this admission?: Yes Plan: Possible HCAP. Antibiotics as mentioned #1. 04/05/2019-appears to be healthcare acquired pneumonia. We will continue Vanco and cefepime until cultures return. (3) Fall Is this a current diagnosis for this admission?: Yes Plan: Presyncopal episodes were likely related to hypotension. Trauma work-up negative. 04/05/2019-presyncopal episode. Trauma work-up was negative continue to follow (4) JOEL (acute kidney injury) Is this a current diagnosis for this admission?: Yes Plan: Creatinine has significantly improved downt o 0.79 with IV fluids. 04/05/2019-creatinine has normalized. Continue to follow daily BMP - Time Time Spent with patient: 15-24 minutes - Inpatient Certification Based on my medical assessment, after consideration of the patient's comorbidities, presenting symptoms, or acuity I expect that the services needed warrant INPATIENT care.: Yes I certify that my determination is in accordance with my understanding of Medicare's requirements for reasonable and necessary INPATIENT services [42 CFR 412.3e].: Yes Medical Necessity: Significant Comorbidiites Make Outpatient Treatment Too Risky, Need Close Monitoring Due to Risk of Patient Decompensation
[2019-04-05] MEDS: HEPARIN SOD (PORCINE) 5,000 UNIT/ML 1 ML VIAL SUBCUT SCH ×2 (10:26→21:29)
[2019-04-05] MEDS: PREGABALIN 50 MG CAPSULE PO SCH ×2 (10:29→21:29)
[2019-04-05] MEDS: ACETAMINOPHEN 325 MG TABLET PO PRN ×2 (14:20→23:06)
[2019-04-05] MEDS: VANCOMYCIN HCL 1,250 MG in DEXTROSE 5%-WATER 250 ML IV SCH (17:42)
[2019-04-05] MEDS: ALPRAZOLAM 0.25 MG TABLET PO PRN (21:29)
[2019-04-06 05:42] LABS: HEMATOCRIT 32.4 % (36.0-47.0); HEMOGLOBIN 9.5 g/dL (12.0-15.5); MEAN CORPUSCULAR HEMOGLOBIN 18.3 pg (27.0-33.4); MEAN CORPUSCULAR HGB CONC 29.2 g/dL (32.0-36.0); MEAN CORPUSCULAR VOLUME 63 fl (80-97); PLATELET COUNT 215 10^3/uL (150-450); RED BLOOD COUNT 5.17 10^6/uL (3.72-5.28); RED CELL DISTRIBUTION WIDTH 34.9 % (11.5-14.0); WHITE BLOOD COUNT 11.2 10^3/uL (4.0-10.5)
[2019-04-06 05:43] LABS: ANION GAP 6 (5-19); BLOOD UREA NITROGEN 7 mg/dL (7-20); CALCIUM 8.1 mg/dL (8.4-10.2); CARBON DIOXIDE 28 mmol/L (22-30); CHLORIDE 106 mmol/L (98-107); POTASSIUM 3.9 mmol/L (3.6-5.0)
[2019-04-06 05:46] LABS: GLUCOSE 65 mg/dL (75-110)
[2019-04-06] MEDS ORDERED: DEXTROSE 50%-WATER 25 GM/50 ML DISP.SYRIN IV ONE (05:51)
[2019-04-06] MEDS: CEFEPIME 1 GM/D5W RTU 1 GM/50 ML RTUPB IV SCH (05:54)
[2019-04-06] MEDS: HEPARIN SOD (PORCINE) 5,000 UNIT/ML 1 ML VIAL SUBCUT SCH (09:13)
[2019-04-06] MEDS: PREGABALIN 50 MG CAPSULE PO SCH (09:13)
--- NOTE | 2019-04-06 09:43 | PDOC DISCHARGE SUMMARY ---
Impression - Admit/DC Date/PCP Admission Date/Primary Care Provider: 04/02/19 17:21 Discharge Date: 04/06/19 - Discharge Diagnosis (1) Severe sepsis Is this a current diagnosis for this admission?: Yes (2) Fall Is this a current diagnosis for this admission?: Yes (3) JOEL (acute kidney injury) Is this a current diagnosis for this admission?: Yes (4) Healthcare-associated pneumonia Is this a current diagnosis for this admission?: Yes - Additional Information Resuscitation Status: Full Code Discharge Activity: Activity As Tolerated Prescriptions: Levofloxacin [Levaquin 500 mg Tablet] 500 mg PO DAILY #5 tablet Home Medications: Alprazolam [Xanax 0.5 mg Tablet] 0.5 mg PO QHS 04/03/19 Diltiazem HCl [Cardizem 60 mg Tablet] 60 mg PO Q8 04/03/19 Escitalopram Oxalate [Lexapro 10 mg Tablet] 10 mg PO DAILY 04/03/19 Furosemide [Lasix 20 mg Tablet] 20 mg PO DAILY 04/03/19 Ipratropium/Albuterol Sulfate [Duoneb 3 ml Ampul] 1 vial NEB [id number] PRN 04/03/19 Levothyroxine Sodium 88 mcg PO Q6AM 04/03/19 Metoprolol Succinate [Toprol Xl 25 mg Tab.sr] 25 mg PO DAILY 04/03/19 Omeprazole 40 mg PO DAILY 04/03/19 Potassium Chloride [Klor-Con 10 Meq Capsule ER] 10 meq PO DAILY 04/03/19 Pregabalin 50 mg PO DAILY 04/03/19 Ranitidine HCl [Zantac] 300 mg PO DAILY 04/03/19 Levofloxacin [Levaquin 500 mg Tablet] 500 mg PO DAILY #5 tablet 04/06/19 History of Present Illiness History of Present Illness: LUZ MARIA OAKLEY is a 73 year old female with a history of chronic rotatory failure and tracheostomy for history of throat cancer, right lung cancer and another unknown type of cancer was brought to the emergency room due to presyncopal episodes. Hospital Course Hospital Course: Patient presented to the ER with a presyncopal episode. Patient is just been recently admitted to [place] for severe sepsis secondary to pneumonia and was on vasopressors in ICU for a few days in [facility]. She was discharged 3 days ago from [place] on oral antibiotics. states patient almost passed out when he tried to stand her up to use a walker. Patient was found to have a blood pressure of 70/40 in the emergency department. Patient was found to have continued pneumonia and sepsis on presentation most likely accounting for her presyncopal episode. Patient was placed on IMCU hydrated aggressively placed on antibiotics. Over the course of her time she is improved patient return home. Patient's cultures have shown no growth at this time however we will continue on Levaquin 500 mg p.o. daily x5 days. Patient will follow with primary care practitioner in 1 week. Patient is a good spirits at this time and agrees with plan of care and wishes to go home. Physical Exam Vital Signs: Temp Pulse Resp BP Pulse Ox 97.5 F 69 14 117/55 L 97 04/06/19 03:51 04/06/19 07:00 04/06/19 03:51 04/06/19 03:51 04/06/19 08:00 Intake & Output 04/05/19 04/06/19 04/07/19 06:59 06:59 06:59 Intake Total 1750 900 Output Total 400 475 Balance 1350 425 Weight 76.4 kg 71 kg General appearance: PRESENT: no acute distress, well-developed, well-nourished Neck exam: ABSENT: carotid bruit, JVD, lymphadenopathy, thyromegaly Respiratory exam: PRESENT: clear to auscultation lee ann, other - Tracheostomy. ABSENT: rales, rhonchi, wheezes Cardiovascular exam: PRESENT: RRR. ABSENT: diastolic murmur, rubs, systolic murmur Pulses: PRESENT: +1 pedal pulses bilateral Vascular exam: PRESENT: normal capillary refill GI/Abdominal exam: PRESENT: normal bowel sounds, soft. ABSENT: distended, guarding, mass, organolmegaly, rebound, tenderness Rectal exam: PRESENT: deferred Extremities exam: PRESENT: full ROM. ABSENT: calf tenderness, clubbing, pedal edema Neurological exam: PRESENT: alert, awake, oriented to person, oriented to place, oriented to time, oriented to situation, CN II-XII grossly intact. ABSENT: motor sensory deficit Psychiatric exam: PRESENT: appropriate affect, normal mood. ABSENT: homicidal ideation, suicidal ideation Skin exam: PRESENT: dry, intact, warm. ABSENT: cyanosis, rash Results Laboratory Results: WBC 11.2 10^3/uL (4.0-10.5) H 04/06/19 04:40 RBC 5.17 10^6/uL (3.72-5.28) 04/06/19 04:40 Hgb 9.5 g/dL (12.0-15.5) L 04/06/19 04:40 Hct 32.4 % (36.0-47.0) L 04/06/19 04:40 MCV 63 fl (80-97) L 04/06/19 04:40 MCH 18.3 pg (27.0-33.4) L 04/06/19 04:40 MCHC 29.2 g/dL (32.0-36.0) L 04/06/19 04:40 RDW 34.9 % (11.5-14.0) H 04/06/19 04:40 Plt Count 215 10^3/uL (150-450) 04/06/19 04:40 Lymph % (Auto) Not Reportable 04/03/19 08:13 [place] % (Auto) Not Reportable 04/03/19 08:13 Eos % (Auto) Not Reportable 04/03/19 08:13 Baso % (Auto) Not Reportable 04/03/19 08:13 Absolute Neuts (auto) Not Reportable 04/03/19 08:13 Absolute Lymphs (auto) Not Reportable 04/03/19 08:13 Absolute Monos (auto) Not Reportable 04/03/19 08:13 Absolute Eos (auto) Not Reportable 04/03/19 08:13 Absolute Basos (auto) Not Reportable 04/03/19 08:13 Total Counted 100 04/03/19 08:13 Seg Neutrophils % Not Reportable 04/03/19 08:13 Seg Neuts % (Manual) 94 % (42-78) H 04/03/19 08:13 Lymphocytes % (Manual) 5 % (13-45) L 04/03/19 08:13 Monocytes % (Manual) 1 % (3-13) L 04/03/19 08:13 Eosinophils % (Manual) 0 % (0-6) 04/03/19 08:13 Basophils % (Manual) 0 % (0-2) 04/03/19 08:13 Abs Neuts (Manual) 8.7 10^3/uL (1.7-8.2) H 04/03/19 08:13 Abs Lymphs (Manual) 0.5 10^3/uL (0.5-4.7) 04/03/19 08:13 Abs Monocytes (Manual) 0.1 10^3/uL (0.1-1.4) 04/03/19 08:13 Absolute Eos (Manual) 0.0 10^3/uL (0.0-0.6) 04/03/19 08:13 Abs Basophils (Manual) 0.0 10^3/uL (0.0-0.2) 04/03/19 08:13 Hypersegmented Neuts PRESENT 04/03/19 08:13 Toxic Vacuolation PRESENT 04/02/19 15:48 Clumped Platelets PRESENT 04/02/19 15:48 Platelet Comment ADEQUATE 04/03/19 08:13 Hypochromasia 2+ 04/03/19 08:13 Anisocytosis 4+ 04/03/19 08:13 Microcytosis 3+ 04/03/19 08:13 Target Cells 1+ 04/03/19 08:13 Tear Drop Cells SLIGHT 04/02/19 15:48 PT 14.2 SEC (11.4-15.4) 04/02/19 15:48 INR 1.10 04/02/19 15:48 Carbonic Acid 1.18 mmol/L (1.05-1.35) 04/02/19 15:48 HCO3/H2CO3 Ratio 21:1 04/02/19 15:48 ABG pH 7.43 (7.35-7.45) 04/02/19 15:48 ABG pCO2 39.3 mmHg (35-45) 04/02/19 15:48 ABG pO2 113.7 mmHg (80-100) H 04/02/19 15:48 ABG HCO3 25.6 mmol/L (20-24) H 04/02/19 15:48 ABG Total CO2 26.8 mmol/L (21-25) H 04/02/19 15:48 ABG O2 Saturation 98.3 % (94-98) H 04/02/19 15:48 ABG Base Excess 1.3 mmol/L 04/02/19 15:48 FiO2 11L 04/02/19 15:48 Sodium 139.5 mmol/L (137-145) 10/30/19 04:40 Potassium 3.9 mmol/L (3.6-5.0) 04/06/19 04:40 Chloride 106 mmol/L (98-107) 04/06/19 04:40 Carbon Dioxide 28 mmol/L (22-30) 04/06/19 04:40 Anion Gap 6 (5-19) 04/06/19 04:40 BUN 7 mg/dL (7-20) 04/06/19 04:40 Creatinine 0.47 mg/dL (0.52-1.25) L 04/06/19 04:40 Est GFR ( Amer) > 60 (>60) 04/06/19 04:40 Est GFR (MDRD) Non-Af > 60 (>60) 04/06/19 04:40 Glucose 65 mg/dL (75-110) L 04/06/19 04:40 POC Glucose 112 mg/dL (70-110) H 04/06/19 06:33 Lactic Acid 0.7 mmol/L (0.7-2.1) 04/03/19 09:05 Calcium 8.1 mg/dL (8.4-10.2) L 04/06/19 04:40 Magnesium 2.4 mg/dL (1.6-2.3) H 04/02/19 15:48 Total Bilirubin 0.7 mg/dL (0.2-1.3) 04/02/19 15:48 Direct Bilirubin 0.1 mg/dL (0.0-0.4) 04/02/19 15:48 Neonat Total Bilirubin Not Reportable 04/02/19 15:48 Neonat Direct Bilirubin Not Reportable 04/02/19 15:48 Neonat Indirect Bili Not Reportable 04/02/19 15:48 AST 31 U/L (14-36) 04/02/19 15:48 ALT 21 U/L (<35) 04/02/19 15:48 Alkaline Phosphatase 40 U/L (38-126) 04/02/19 15:48 Troponin I 0.066 ng/mL 04/02/19 15:48 NT-Pro-B Natriuret Pep 1100 pg/mL (<125) H 04/03/19 13:26 Total Protein 5.4 g/dL (6.3-8.2) L 04/02/19 15:48 Albumin 3.3 g/dL (3.5-5.0) L 04/02/19 15:48 Random Cortisol 11.40 ug/dL (None Established) 04/02/19 23:58 Urine Color YELLOW 04/02/19 17:20 Urine Appearance SLIGHTLY-CLOUDY 04/02/19 17:20 Urine pH 6.0 (5.0-9.0) 04/02/19 17:20 Ur Specific [place] 1.016 04/02/19 17:20 Urine Protein NEGATIVE mg/dL (NEGATIVE) 04/02/19 17:20 Urine Glucose (UA) NEGATIVE mg/dL (NEGATIVE) 04/02/19 17:20 Urine Ketones NEGATIVE mg/dL (NEGATIVE) 04/02/19 17:20 Urine Blood NEGATIVE (NEGATIVE) 04/02/19 17:20 Urine Nitrite NEGATIVE (NEGATIVE) 04/02/19 17:20 Urine Bilirubin NEGATIVE (NEGATIVE) 04/02/19 17:20 Urine Urobilinogen NEGATIVE mg/dL (<2.0) 04/02/19 17:20 Ur Leukocyte Esterase NEGATIVE (NEGATIVE) 04/02/19 17:20 Urine WBC (Auto) 2 /HPF 04/02/19 17:20 Urine RBC (Auto) 1 /HPF 04/02/19 17:20 U Hyaline Cast (Auto) 45 /LPF 04/02/19 17:20 Squamous Epi Cells Auto 1 /HPF 04/02/19 17:20 Urine Mucus (Auto) RARE /LPF 04/02/19 17:20 Urine Yeast (Budding) PRESENT /HPF 04/02/19 17:20 Urine Ascorbic Acid NEGATIVE (NEGATIVE) 04/02/19 17:20 Slides for Path Review PATHOLOGIST REVIEWED 04/03/19 08:13 04/02/19 04/03/19 15:48 13:26 Troponin I 0.066 NT-Pro-B Natriuret Pep 1100 H Impressions: Lumbar Spine CT 04/02/19 00:00 IMPRESSION: 1. No acute fracture of lumbar spine. 2. Old L2-L3 fracture and other chronic degenerative changes as described. Chest X-Ray 04/02/19 15:56 IMPRESSION: Heterogeneous opacity of the left lung base, which may reflect scarring or atelectasis as well as acute airspace disease. Cardiomegaly. Chest CT 04/02/19 17:37 IMPRESSION: Small bilateral pleural effusions. Patchy bibasilar atelectasis/infiltrate. Pneumonia is a consideration. Emphysema. Coronary artery calcification with mild cardiomegaly. Hip/Pelvis X-Ray 04/02/19 17:39 IMPRESSION: No acute fracture identified. Chest X-Ray 04/04/19 00:00 IMPRESSION: Unchanged radiographic appearance of the chest with asymmetric bibasilar opacities as detailed above. Lung Scan-VQ NM 04/04/19 09:06 IMPRESSION: Generally homogeneous pulmonary perfusion, with a subtle defect at the left lung base corresponding to findings small left pleural effusion and heterogeneous opacity left lung base seen on comparison radiograph. Radiograph matched left basilar nonsegmental defect on perfusion only nuclear scintigraphic lung scan, no specific findings to suggest pulmonary embolism. Plan Time Spent: Greater than 30 Minutes Stroke Is this a Stroke Patient?: No Acute Heart Failure - Is this a Heart Failure Patient?: No
[2019-04-06] MEDS: ACETAMINOPHEN 325 MG TABLET PO PRN (10:19)
[2019-04-06 12:36] VITALS: BP 113/49
== END 2019-04-06 12:05 | disposition home health service (06) | DRG 871 ==
LOC: ER 15:40 → EH 17:21 → 3N 19:15
PROVIDERS: ADMIT Internal Medicine; ATTEND Internal Medicine
DX: A41.9 Sepsis, unspecified organism (principal); J18.1 Lobar pneumonia, unspecified organism; N17.9 Acute kidney failure, unspecified; E87.1 Hypo-osmolality and hyponatremia; J96.10 Chronic respiratory failure, unspecified whether with hypoxia or hypercapnia; Z99.81 Dependence on supplemental oxygen; Z43.0 Encounter for attention to tracheostomy; D64.89 Other specified anemias; I10 Essential (primary) hypertension; J44.9 Chronic obstructive pulmonary disease, unspecified; R65.20 Severe sepsis without septic shock; Z91.81 History of falling; Z85.12 Personal history of malignant neoplasm of trachea; Z85.118 Personal history of other malignant neoplasm of bronchus and lung; Z85.89 Personal history of malignant neoplasm of other organs and systems; Z23 Encounter for immunization
CPT/HCPCS: 36415; 71045; 71250; 72131; 78580; 80048; 80053; 81001; 82533; 82803; 82962; 83605; 83735; 83880; 84484; 85025; 85027; 85610; 87040; 87070; 87205; 90686; 93005; 93010; 93306; 99285; A9540; J0692; J1644; J1720; J3370; J3490; J7030; J7040; J7060; J7620; Q9969

== ENCOUNTER 2019-04-24 11:47 | Emergency (ER) | payer MEDICARE ==
[2019-04-24 12:24] LABS: HEMATOCRIT 32.9 % (36.0-47.0); MEAN CORPUSCULAR HEMOGLOBIN 20.1 pg (27.0-33.4); MEAN CORPUSCULAR HGB CONC 30.5 g/dL (32.0-36.0); MEAN CORPUSCULAR VOLUME 66 fl (80-97); PLATELET COUNT 458 10^3/uL (150-450); RED BLOOD COUNT 4.98 10^6/uL (3.72-5.28); RED CELL DISTRIBUTION WIDTH 36.6 % (11.5-14.0); WHITE BLOOD COUNT 9.2 10^3/uL (4.0-10.5)
[2019-04-24 12:38] LABS: ALBUMIN 3.7 g/dL (3.5-5.0); ALKALINE PHOSPHATASE 102 U/L (38-126); ANION GAP 9 (5-19); ASPARTATE AMINO TRANSFERASE 31 U/L (14-36); BILIRUBIN,DIRECT 0.2 mg/dL (0.0-0.4); BILIRUBIN,TOTAL 0.5 mg/dL (0.2-1.3); BLOOD UREA NITROGEN 9 mg/dL (7-20); CALCIUM 8.7 mg/dL (8.4-10.2); CARBON DIOXIDE 30 mmol/L (22-30); CHLORIDE 99 mmol/L (98-107); GLUCOSE 92 mg/dL (75-110); POTASSIUM 4.3 mmol/L (3.6-5.0); TOTAL PROTEIN 6.5 g/dL (6.3-8.2)
[2019-04-24 12:49] LABS: CREATINE KINASE MB 2.69 ng/mL (<4.55); TROPONIN I 0.018 ng/mL
[2019-04-24 12:55] LABS: CREATINE KINASE 44 U/L (30-135)
[2019-04-24 13:05] LABS: ABSOLUTE LYMPHOCYTES# (MANUAL) 0.7 10^3/uL (0.5-4.7); ABSOLUTE MONOCYTES # (MANUAL) 1.4 10^3/uL (0.1-1.4); BASOPHILS % (MANUAL) 0 % (0-2); EOSINOPHILS % (MANUAL) 0 % (0-6); LYMPHOCYTES % (MANUAL) 8 % (13-45); MONOCYTES % (MANUAL) 15 % (3-13); SEGMENTED NEUTROPHILS % (MAN) 77 % (42-78); TOTAL CELLS COUNTED 100
[2019-04-24 13:07] LABS: ANISOCYTOSIS 4+; HYPOCHROMASIA 2+; OVALOCYTES SLIGHT; POIKILOCYTOSIS 1+; TARGET CELLS SLIGHT
[2019-04-24 13:08] LABS: PLATELET COMMENT ADEQUATE
--- NOTE | 2019-04-24 13:45 | ER Document Report ---
Doctor's Note Notes: 04/24/19 13:44 I was notified by staff, after picking up the chart, the patient wanted to leave AGAINST MEDICAL ADVICE. She had labs ordered. I did review nursing notes. I went in to discuss this with the patient. I did my best to convince her to stay to complete her evaluation. She states she has a home health nurse she can call. She states she is feeling stable, does not wish to stay. I explained to her that I was unsure as to the etiology of her symptoms. She certainly has multiple medical problems, and any 1 of them could worsen at any time. She voiced understanding to this and still elected to leave AGAINST MEDICAL ADVICE. I explained to her that she could have increased weakness, unknown infection, heart attack, stroke, is possible repercussions for this. She voiced understanding and signed out AMA. I did not examine nor fully interview the patient. She would not allow this, and insisted that she leave.
[2019-04-24 13:46] VITALS: BP 152/91
--- NOTE | 2019-04-24 22:19 | EKG REPORT ---
SEVERITY:- ABNORMAL ECG - SINUS RHYTHM MULTIFORM VENTRICULAR PREMATURE COMPLEXES RBBB AND LPFB : Confirmed by: Marcela Limon MD 24-Apr-2019 22:18:30
== END 2019-04-24 13:46 | disposition left against medical advice (07) ==
LOC: ER 11:47
DX: Z53.21 Procedure and treatment not carried out due to patient leaving prior to being seen by health care provider (principal); R53.1 Weakness
CPT/HCPCS: 36415; 80053; 82550; 82553; 84484; 85025; 93005; 93010; 99285

== ENCOUNTER 2019-08-16 13:47 | Emergency (ER) | payer MEDICARE ==
--- NOTE | 2019-08-16 14:01 | ER Document Report ---
ED Medical Screen (RME) - General Chief Complaint: Cough Stated Complaint: POSSIBLE TRACH ISSUES Time Seen by Provider: 08/16/19 13:57 Mode of Arrival: Wheelchair Information source: Relative Notes: 74-year-old male presented to ED for a cough for the last week. She states she needs her trach suctioned out. is with her states that he turned the suction machine and because it made him more flustered. He states that the and told him that she needed to come to the emergency room because she did not think it was bad enough for 911 to come to the house and she needed to come to the emergency room to get suctioned out. She does not have a home health aide home health nurse or any treatment like that. She is alert oriented respirations regular and unlabored. I have greeted and performed a rapid initial assessment of this patient. A comprehensive ED assessment and evaluation of the patient, analysis of test results and completion of medical decision making process will be conducted by an additional ED providers. TRAVEL OUTSIDE OF THE [place] IN LAST 30 DAYS: No - Related Data Allergies/Adverse Reactions: adhesive tape Allergy (Verified 08/16/19 13:54) iodine Allergy (Verified 08/16/19 13:54) Physical Exam - Vital signs Vitals: Temp Pulse Resp BP Pulse Ox 98.6 F 79 16 98/54 L 98 08/16/19 13:55 08/16/19 13:55 08/16/19 13:55 08/16/19 13:55 08/16/19 13:55 Course - Vital Signs Vital signs: Temp Pulse Resp BP Pulse Ox 98.6 F 79 16 98/54 L 98 08/16/19 13:55 08/16/19 13:55 08/16/19 13:55 08/16/19 13:55 08/16/19 13:55
--- NOTE | 2019-08-16 14:23 | RADIOLOGY REPORT (SQ) ---
EXAM DESCRIPTION: CHEST 2 VIEWS COMPLETED DATE/TIME: 08/16/2019 2:12 pm REASON FOR STUDY: Cough has a trach COMPARISON: 04/04/2019 EXAM PARAMETERS: NUMBER OF VIEWS: two views TECHNIQUE: Digital Frontal and Lateral radiographic views of the chest acquired. RADIATION DOSE: NA LIMITATIONS: none FINDINGS: LUNGS AND PLEURA: Chronic interstitial changes. No significant interval change. MEDIASTINUM AND HILAR STRUCTURES: No masses or contour abnormalities. HEART AND VASCULAR STRUCTURES: Heart normal size. No evidence for failure. BONES: No acute findings. HARDWARE: Tracheostomy. OTHER: No other significant finding. IMPRESSION: Chronic lung changes with no acute cardiopulmonary finding. TECHNICAL DOCUMENTATION: JOB ID: [id number] 2010 [employer]- All Rights Reserved Reading location - IP/workstation name: [email or web address]
[2019-08-16] MEDS ORDERED: IPRATROPIUM/ALBUTEROL 0.5-2.5 MG/3 ML AMPUL NEB ONE (15:25)
--- NOTE | 2019-08-16 15:32 | ER Document Report ---
ED Respiratory Problem - General Chief Complaint: Cough Stated Complaint: POSSIBLE TRACH ISSUES Time Seen by Provider: 08/16/19 15:20 Primary Care Provider: DWAYNE WAHL MD [Primary Care Provider] - Follow up as needed Mode of Arrival: Wheelchair Information source: Patient, Relative Notes: Patient presents requesting suctioning. Patient and her spouse states that she occasionally needs suctioning to her trach and they had recently returned in their suction set up as patient's spouse was not comfortable with using the device. Patient denies any chest pain or fever. Patient states that her sputum seem to be thicker today which got her concerned. Patient did not want symptoms to worsen and her to have difficulty breathing at home. TRAVEL OUTSIDE OF THE [place] IN LAST 30 DAYS: No - HPI Patient complains to provider of: COPD, Cough Onset: This afternoon Quality of pain: No pain Pain Level: Denies Context: Hx COPD. denies: Recent long distance trvl, Recent surgery Cough: Productive Sputum amount: Moderate Sputum color: Green, Yellow Sputum consistency: Thick Associated symptoms: Cough. denies: Chest pain/discomfort, Congestion, Wheezing Similar symptoms previously: Yes Recently seen / treated by doctor: No - Related Data Allergies/Adverse Reactions: adhesive tape Allergy (Verified 08/16/19 13:54) iodine Allergy (Verified 08/16/19 13:54) Past Medical History - General Information source: Relative - Social History Smoking Status: Former Smoker Frequency of alcohol use: None Drug Abuse: None Lives with: Spouse/Significant other Family History: Reviewed & Not Pertinent Patient has suicidal ideation: No Patient has homicidal ideation: No - Past Medical History Cardiac Medical History: Reports: Hx Hypertension Pulmonary Medical History: Reports: Hx COPD, Other - Tracheostomy Malignancy Medical History: Reports: Hx Lung Cancer Past Surgical History: Reports: Other - Tracheostomy, lobectomy Review of Systems - Review of Systems Constitutional: No symptoms reported. denies: Fever EENT: No symptoms reported Cardiovascular: No symptoms reported. denies: Chest pain Respiratory: Cough, Sputum Gastrointestinal: No symptoms reported. denies: Nausea, Vomiting Genitourinary: No symptoms reported Female Genitourinary: No symptoms reported Musculoskeletal: No symptoms reported Skin: No symptoms reported Hematologic/Lymphatic: No symptoms reported Neurological/Psychological: No symptoms reported Physical Exam - Vital signs Vitals: Temp Pulse Resp BP Pulse Ox 98.6 F 79 16 98/54 L 98 08/16/19 13:55 08/16/19 13:55 08/16/19 13:55 08/16/19 13:55 08/16/19 13:55 - General General appearance: Appears well, Alert In distress: None - HEENT Head: Normocephalic, Atraumatic Eyes: Normal Conjunctiva: Normal Nasal: Normal Mouth/Lips: Normal Neck: Other - Tracheostomy - Respiratory Respiratory status: No respiratory distress Chest status: Nontender Breath sounds: Productive cough, Rhonchi - Clears with coughing Chest palpation: Normal - Cardiovascular Rhythm: Regular Heart sounds: S1 appreciated, S2 appreciated - Abdominal Inspection: Normal Tenderness: Nontender - Back Back: Normal, Nontender - Extremities General upper extremity: Normal inspection, Normal strength General lower extremity: Normal inspection, Normal strength - Neurological Neuro grossly intact: Yes Cognition: Normal - Psychological Associated symptoms: Normal affect, Normal mood - Skin Skin Temperature: Warm Skin Moisture: Dry Skin Color: Normal Course - Re-evaluation Re-evalutation: 08/16/19 16:38 Patient reports feeling better after having trach suction. Patient states that she is ready to go home at this time. Patient declines having trach flushed prior to suctioning. Patient respirations even unlabored, patient nontoxic in appearance. Good return precautions discussed with patient and spouse. - Vital Signs Vital signs: Temp Pulse Resp BP Pulse Ox 97.8 F 84 19 142/62 H 98 08/16/19 16:59 08/16/19 16:59 08/16/19 16:59 08/16/19 16:59 08/16/19 16:59 - Diagnostic Test Radiology reviewed: Image reviewed, Reports reviewed Discharge - Discharge Clinical Impression: Need for suctioning of tracheostomy COPD (chronic obstructive pulmonary disease) Qualifiers: COPD type: unspecified COPD Qualified Code(s): J44.9 - Chronic obstructive pulmonary disease, unspecified Condition: Stable Disposition: HOME, SELF-CARE Instructions: Chronic Obstructive Lung Disease ([facility]) Additional Instructions: Return immediately for any new or worsening symptoms Followup with your primary care provider, call tomorrow to make a followup appointment Stay well-hydrated Referrals: DWAYNE WAHL MD [Primary Care Provider] - Follow up as needed
[2019-08-16 17:00] VITALS: BP 142/62
== END 2019-08-16 16:59 | disposition home or self-care (01) ==
LOC: ER 13:47
DX: Z43.0 Encounter for attention to tracheostomy (principal); J44.9 Chronic obstructive pulmonary disease, unspecified; R05 Cough; I10 Essential (primary) hypertension; Z87.891 Personal history of nicotine dependence; Z85.118 Personal history of other malignant neoplasm of bronchus and lung; Z90.2 Acquired absence of lung [part of]; Z91.048 Other nonmedicinal substance allergy status
CPT/HCPCS: 99283; 71046; A9270; J7620

== ENCOUNTER 2019-10-16 14:46 | Inpatient (IN) | payer MEDICARE ==
--- NOTE | 2019-10-16 15:27 | ER Document Report ---
ED Respiratory Problem - General Chief Complaint: Shortness Of Breath Stated Complaint: SHORTNESS OF BREATHI Time Seen by Provider: 10/16/19 15:24 Primary Care Provider: DWAYNE WAHL MD [Primary Care Provider] - Follow up as needed Mode of Arrival: Wheelchair Information source: Patient, Relative Notes: 74-year-old female past medical history significant for hypertension, COPD, lung cancer, GERD, hypothyroidism presents to the emergency room complaining of wo rsening right leg pain. Not currently taking any medications for pain. Denies any trauma or injury. Also states she started with some shortness of breath last night after eating some chicken. Denies choking on it. Denies fevers. Denies any recent travel. No cold with exposure. Patient states she has a chronic cough recently was on doxycycline which she finished the September 25. TRAVEL OUTSIDE OF THE [place] IN LAST 30 DAYS: No - Related Data Allergies/Adverse Reactions: adhesive tape Allergy (Verified 08/16/19 13:54) iodine Allergy (Verified 08/16/19 13:54) Past Medical History - General Information source: Patient, Relative - Social History Smoking Status: Former Smoker Frequency of alcohol use: None Drug Abuse: None Lives with: Family Family History: Reviewed & Not Pertinent Patient has homicidal ideation: No - Past Medical History Cardiac Medical History: Reports: Hx Hypertension Pulmonary Medical History: Reports: Hx COPD Malignancy Medical History: Reports: Hx Lung Cancer Past Surgical History: Reports: Other - Tracheostomy, lobectomy Review of Systems - Review of Systems Constitutional: No symptoms reported Cardiovascular: No symptoms reported Respiratory: Short of breath Musculoskeletal: Muscle pain Neurological/Psychological: No symptoms reported -: Yes All other systems reviewed and negative Physical Exam - Vital signs Vitals: Temp BP Pulse Ox 97.8 F 130/77 H 96 10/16/19 14:47 10/16/19 14:47 10/16/19 14:47 - General General appearance: Alert In distress: Mild - HEENT Head: Normocephalic, Atraumatic Neck: Other - Trach in place. - Respiratory Respiratory status: No respiratory distress Chest status: Nontender Breath sounds: Decreased air movement - Left lower lobe - Cardiovascular Rhythm: Tachycardia Heart sounds: Normal auscultation Murmur: No - Extremities Hip: Tender - Right iliac crest, Pain with ROM. No: Deformity Thigh: Tender Calf: Normal - Neurological Neuro grossly intact: Yes Cognition: Normal Orientation: AAOx4 Notes: Positive right radial pulse. Capillary refill less than 3 seconds. - Skin Skin Temperature: Warm Skin Moisture: Dry Skin Color: Normal Course - Re-evaluation Re-evalutation: 10/16/19 16:06 spoke with spouse Alex aware of xray results. States they only came to the emergency room for her right groin and leg pain. Updated spouse on plan and will call back to discuss disposition once all test results are completed. 10/16/19 17:01 Patient is resting comfortably currently pain free. Reviewed all test results with patient. Discussed admission versus discharge. Patient does not feel comfortable being discharged. She would like to be admitted. Will discuss with and primary care physician. 10/16/19 17:12 spoke with spouse Alex aware of need for admission, aware that I have also spoken with Dr. Wahl who agrees with admission. - Vital Signs Vital signs: Temp Pulse Resp BP Pulse Ox 97.8 F 18 116/69 99 10/16/19 14:47 10/16/19 17:01 10/16/19 17:01 10/16/19 17:01 - Laboratory Result Diagrams: 10/16/19 15:07 10/16/19 15:07 Laboratory results interpreted by me: 10/16/19 10/16/19 15:07 15:07 Hgb 9.4 L Hct 30.9 L MCV 60 L MCH 18.2 L MCHC 30.3 L RDW 21.3 H Lymph % (Auto) 5.5 L Absolute Lymphs (auto) 0.3 L Seg Neutrophils % 78.6 H Sodium 127.0 L Potassium 3.2 L Chloride 89 L - Diagnostic Test Radiology reviewed: Reports reviewed - EKG Interpretation by Me Additional EKG results interpreted by me: 10/16/19 16:04 EKG reviewed and interpreted by ED physician Dr. Michaels - Consults Dr. Wahl Time consulted: 17:02 Reason for consultation: 10/16/19 17:03 admission Consulted provider: will see as inpatient Discharge - Discharge Clinical Impression: Hyponatremia, Hypokalemia, Right leg pain LLL pneumonia Qualifiers: Pneumonia type: due to unspecified organism Qualified Code(s): J18.9 - Pneumonia, unspecified organism Condition: Good Disposition: ADMITTED INPATIENT Admitting Provider: Timo Unit Admitted: Medical Floor Referrals: DWAYNE WAHL MD [Primary Care Provider] - Follow up as needed
--- NOTE | 2019-10-16 15:28 | RADIOLOGY REPORT (SQ) ---
EXAM DESCRIPTION: CHEST SINGLE VIEW IMAGES COMPLETED DATE/TIME: 10/16/2019 3:05 pm REASON FOR STUDY: shortness of breath COMPARISON: 04/02/2019 EXAM PARAMETERS: NUMBER OF VIEWS: One view. TECHNIQUE: Single frontal radiographic view of the chest acquired. RADIATION DOSE: NA LIMITATIONS: None. FINDINGS: LUNGS AND PLEURA: Parenchymal opacities at the left base with left effusion. No acute fin dings on the right. MEDIASTINUM AND HILAR STRUCTURES: No masses. Contour normal. HEART AND VASCULAR STRUCTURES: Heart enlarged with mild vascular congestion. BONES: No acute findings. HARDWARE: None in the chest. OTHER: No other significant finding. IMPRESSION: Left lower lobe pneumonia and pleural effusion. TECHNICAL DOCUMENTATION: JOB ID: [id number] 2010 [employer]- All Rights Reserved Reading location - IP/workstation name: [email or web address]
[2019-10-16 15:34] LABS: ABSOLUTE BASOPHILS # (AUTO) 0.1 10^3/uL (0.0-0.2); ABSOLUTE EOSINOPHILS # (AUTO) 0.2 10^3/uL (0.0-0.6); ABSOLUTE LYMPHOCYTES (AUTO) 0.3 10^3/uL (0.5-4.7); ABSOLUTE MONOCYTES (AUTO) 0.7 10^3/uL (0.1-1.4); ABSOLUTE NEUT (AUTO) 4.7 10^3/uL (1.7-8.2); BASOPHILS % (AUTO) 1.5 % (0-2); EOSINOPHILS % (AUTO) 3.5 % (0-6); HEMATOCRIT 30.9 % (36.0-47.0); HEMOGLOBIN 9.4 g/dL (12.0-15.5); LYMPHOCYTES % (AUTO) 5.5 % (13-45); MEAN CORPUSCULAR HEMOGLOBIN 18.2 pg (27.0-33.4); MEAN CORPUSCULAR HGB CONC 30.3 g/dL (32.0-36.0); MONOCYTES % (AUTO) 10.9 % (3-13); PLATELET COUNT 290 10^3/uL (150-450); RED BLOOD COUNT 5.15 10^6/uL (3.72-5.28); RED CELL DISTRIBUTION WIDTH 21.3 % (11.5-14.0); SEGMENTED NEUTROPHILS % (AUTO) 78.6 % (42-78); TOTAL CELLS COUNTED % (AUTO) 100 %
[2019-10-16] MEDS ORDERED: MORPHINE SULFATE 10 MG/ML INJ IV ONE (15:47)
[2019-10-16] MEDS ORDERED: ONDANSETRON HCL INJ/PF 4 MG/2 ML SDV IV ONE (15:47)
[2019-10-16 15:48] LABS: MEAN CORPUSCULAR VOLUME 60 fl (80-97)
[2019-10-16 15:49] LABS: ALBUMIN 4.1 g/dL (3.5-5.0); ALKALINE PHOSPHATASE 66 U/L (38-126); ANION GAP 9 (5-19); ASPARTATE AMINO TRANSFERASE 25 U/L (14-36); BILIRUBIN,TOTAL 0.4 mg/dL (0.2-1.3); BLOOD UREA NITROGEN 9 mg/dL (7-20); CALCIUM 8.7 mg/dL (8.4-10.2); CARBON DIOXIDE 29 mmol/L (22-30); CHLORIDE 89 mmol/L (98-107); GLUCOSE 89 mg/dL (75-110); POTASSIUM 3.2 mmol/L (3.6-5.0); TOTAL PROTEIN 6.4 g/dL (6.3-8.2)
[2019-10-16 15:52] LABS: ANISOCYTOSIS 3+; HYPOCHROMASIA 3+; OVALOCYTES SLIGHT; PLATELET COMMENT ADEQUATE; PLATELET GIANT PRESENT; POIKILOCYTOSIS 1+; TARGET CELLS 1+
[2019-10-16 16:27] LABS: APPEARANCE,URINE CLEAR; BILIRUBIN,URINE NEGATIVE (NEGATIVE); COLOR,URINE YELLOW; GLUCOSE, URINE NEGATIVE (NEGATIVE); KETONES,URINE NEGATIVE (NEGATIVE); LEUKOCYTE ESTERASE,URINE NEGATIVE (NEGATIVE); NITRITE,URINE NEGATIVE (NEGATIVE); PROTEIN,URINE NEGATIVE (NEGATIVE); URINE SPECIFIC GRAVITY 1.011; UROBILINOGEN,URINE NEGATIVE mg/dL (<2.0)
--- NOTE | 2019-10-16 16:30 | RADIOLOGY REPORT (SQ) ---
EXAM DESCRIPTION: HIP RIGHT AP/LATERAL IMAGES COMPLETED DATE/TIME: 10/16/2019 4:19 pm REASON FOR STUDY: pain COMPARISON: None. NUMBER OF VIEWS: Two views. TECHNIQUE: AP pelvis and additional frog-leg view of the right hip. LIMITATIONS: None. FINDINGS: MINERALIZATION: Normal. RIGHT HIP: No fracture or dislocation. No worrisome bone lesions. LEFT HIP: No fracture or dislocation. No worrisome bone lesions. PUBIS AND ISCHIUM: No fracture. PELVIS: No fracture. SACRUM: No fracture or dislocation. No worrisome bone lesions. LOWER LUMBAR SPINE: Spondylosis. SOFT TISSUES: No findings. OTHER: No other significant finding. IMPRESSION: No fracture. TECHNICAL DOCUMENTATION: JOB ID: [id number] 2010 [employer]- All Rights Reserved Reading location - IP/workstation name: [email or web address]
[2019-10-16] MEDS ORDERED: NORMAL SALINE 250 ML IV ONE (16:43)
[2019-10-16] MEDS ORDERED: POTASSIUM CHLORIDE 10 MEQ TABLET.ER PO ONE ×2 (16:53→22:00)
[2019-10-16] MEDS ORDERED: LEVOFLOXACIN 500 MG/D5W RTU 500 MG/100 ML RTUPB IV SCH (17:30)
--- NOTE | 2019-10-16 20:21 | EKG REPORT ---
SEVERITY:- ABNORMAL ECG - SINUS TACHYCARDIA WITH BIGEMINAL PVCS VENTRICULAR BIGEMINY RBBB AND LPFB : Confirmed by: Jason Giraldo MD 16-Oct-2019 20:20:36
[2019-10-16] MEDS ORDERED: ACETAMINOPHEN 325 MG TABLET PO PRN (21:12)
[2019-10-16] MEDS ORDERED: NORMAL SALINE 1000 ML 1,000 ML IV PRN (21:12)
[2019-10-16] MEDS: HYDROCODONE/ACETAMINOPHEN 5-325 MG TABLET PO PRN (21:41)
[2019-10-17] MEDS: HYDROCODONE/ACETAMINOPHEN 5-325 MG TABLET PO PRN ×2 (02:39→06:45)
[2019-10-17 05:49] LABS: HEMATOCRIT 28.4 % (36.0-47.0); HEMOGLOBIN 8.7 g/dL (12.0-15.5); MEAN CORPUSCULAR HEMOGLOBIN 18.5 pg (27.0-33.4); MEAN CORPUSCULAR HGB CONC 30.7 g/dL (32.0-36.0); MEAN CORPUSCULAR VOLUME 60 fl (80-97); PLATELET COUNT 243 10^3/uL (150-450); RED BLOOD COUNT 4.73 10^6/uL (3.72-5.28); RED CELL DISTRIBUTION WIDTH 20.4 % (11.5-14.0); WHITE BLOOD COUNT 5.8 10^3/uL (4.0-10.5)
[2019-10-17 05:58] VITALS: BP 124/61
[2019-10-17 06:10] LABS: ALBUMIN 3.5 g/dL (3.5-5.0); ALKALINE PHOSPHATASE 58 U/L (38-126); ANION GAP 9 (5-19); ASPARTATE AMINO TRANSFERASE 30 U/L (14-36); BILIRUBIN,TOTAL 0.4 mg/dL (0.2-1.3); BLOOD UREA NITROGEN 7 mg/dL (7-20); CALCIUM 8.1 mg/dL (8.4-10.2); CARBON DIOXIDE 24 mmol/L (22-30); CHLORIDE 93 mmol/L (98-107); GLUCOSE 71 mg/dL (75-110); TOTAL PROTEIN 5.7 g/dL (6.3-8.2)
[2019-10-17 06:11] LABS: ABSOLUTE LYMPHOCYTES# (MANUAL) 1.3 10^3/uL (0.5-4.7); ABSOLUTE MONOCYTES # (MANUAL) 0.3 10^3/uL (0.1-1.4); BAND NEUTROPHILS % (MANUAL) 1 % (3-5); BASOPHILS % (MANUAL) 0 % (0-2); EOSINOPHILS % (MANUAL) 2 % (0-6); LYMPHOCYTES % (MANUAL) 22 % (13-45); MONOCYTES % (MANUAL) 6 % (3-13); SEGMENTED NEUTROPHILS % (MAN) 69 % (42-78); TOTAL CELLS COUNTED 100
[2019-10-17 06:12] LABS: ANISOCYTOSIS 2+; HYPOCHROMASIA 2+; POLYCHROMASIA 1+
[2019-10-17 06:13] LABS: PLATELET COMMENT ADEQUATE
[2019-10-17 06:24] LABS: POTASSIUM 4.4 mmol/L (3.6-5.0)
[2019-10-17] MEDS ORDERED: PANTOPRAZOLE SODIUM 40 MG TABLET.DR PO SCH ×2 (08:00→10:00)
[2019-10-17] MEDS ORDERED: ENOXAPARIN SODIUM INJ 40 MG/0.4 ML DISP.SYRIN SUBCUT SCH (10:00)
--- NOTE | 2019-10-17 11:27 | PDOC H&P ---
History of Present Illness Admission Date/PCP: 10/16/19 17:30 DWAYNE WAHL History of Present Illness: LUZ MARIA OAKLEY is a 74 year old female patient known to my practice who presented to the ED with spouse complaining about right leg pain. Patient denied any recent fall, trauma, injury, or instrumentation. She localized her pain more towards her right side of her waist. She graded pain at 8/10 and described as sharp and persistent. She denied any known relieving factor. She reported shortness of breath after consumption of a chicken soup. She denied choking, fever, or increase secretion from her tracheostomy site. Her coughing spells remain about same with regard to her tracheostomy site. Patient's spouse reported development of right sided weakness few days prior to her presentation. No prior history of stroke. No loss of consciousness, or seizure activity. Her initial ED evaluation was significant for her right leg pain that resolved with IV Morphine administration, hyponatremia, hypokalemia and normal WBC with slight left shift. She was advised hospitalization for further evaluation and management. Her morbidities are as listed below. Past Medical History Cardiac Medical History: Reports: Hypertension Pulmonary Medical History: Reports: Chronic Obstructive Pulmonary Disease (COPD) Malignancy Medical History: Reports: Lung Cancer GI Medical History: Reports: Gastroesophageal Reflux Disease Psychiatric Medical History: Reports: Depression Past Surgical History Past Surgical History: Reports: Other - Tracheostomy, lobectomy Social History Lives with: Family Smoking Status: Former Smoker Electronic Cigarette use?: No Number of Years Smokin Frequency of Alcohol Use: None Hx Recreational Drug Use: No Drugs: None Hx Prescription Drug Abuse: No Family History Family History: Reviewed & Not Pertinent Parental Family History Reviewed: Yes Children Family History Reviewed: Yes Sibling(s) Family History Reviewed.: Yes Medication/Allergy Home Medications: Alprazolam [Xanax 0.5 mg Tablet] 0.5 mg PO QHS 04/03/19 Escitalopram Oxalate [Lexapro 10 mg Tablet] 10 mg PO DAILY 04/03/19 Furosemide [Lasix 20 mg Tablet] 20 mg PO DAILY 04/03/19 Levothyroxine Sodium 88 mcg PO Q6AM 04/03/19 Metoprolol Succinate [Toprol Xl 25 mg Tab.sr] 25 mg PO DAILY 04/03/19 Omeprazole 40 mg PO DAILY 04/03/19 Pregabalin 50 mg PO DAILY 04/03/19 Fexofenadine HCl [Chrissie Allergy] 180 mg PO DAILY 10/17/19 Allergies/Adverse Reactions: adhesive tape Allergy (Verified 08/16/19 13:54) iodine Allergy (Verified 08/16/19 13:54) Review of Systems Constitutional: ABSENT: chills, fever(s), headache(s), weight gain, weight loss Eyes: ABSENT: visual disturbances Ears: ABSENT: hearing changes Nose, Mouth, and Throat: ABSENT: headache(s), mouth pain, sore throat, vertigo Cardiovascular: ABSENT: chest pain, dyspnea on exertion, edema, orthropnea, pa lpitations Respiratory: PRESENT: cough - chronic and relatd to her chronic disease state with tracheostomy. ABSENT: hemoptysis Gastrointestinal: ABSENT: abdominal pain, constipation, diarrhea, hematemesis, hematochezia, nausea, vomiting Genitourinary: ABSENT: dysuria, hematuria Musculoskeletal: PRESENT: other - right lower extremity pain. ABSENT: joint swelling Integumentary: ABSENT: rash, wounds Neurological: ABSENT: abnormal gait, abnormal speech, confusion, dizziness, focal weakness, syncope Psychiatric: ABSENT: anxiety, depression, homidical ideation, suicidal ideation Endocrine: ABSENT: cold intolerance, heat intolerance, polydipsia, polyuria Hematologic/Lymphatic: ABSENT: easy bleeding, easy bruising, lymphadenopathy Allergic/Immunologic: ABSENT: seasonal rhinorrhea Physical Exam Vital Signs: Temp Pulse Resp BP Pulse Ox 97.6 F 85 16 105/52 L 96 10/16/19 19:35 10/16/19 19:35 10/16/19 19:35 10/16/19 19:35 10/16/19 19:35 Intake & Output 10/15/19 10/16/19 10/17/19 06:59 06:59 06:59 Intake Total 350 Balance 350 Weight 64.8 kg General appearance: PRESENT: mild distress - with trch tent supplemental oxygen Head exam: PRESENT: atraumatic, normocephalic Eye exam: PRESENT: conjunctiva pink, EOMI, PERRLA. ABSENT: scleral icterus Ear exam: PRESENT: normal external ear exam Mouth exam: PRESENT: moist, tongue midline Neck exam: PRESENT: tracheostomy Respiratory exam: PRESENT: crackles - scattered, decreased breath sounds - at lung bases Cardiovascular exam: PRESENT: RRR, +S1, +S2. ABSENT: diastolic murmur, rubs, systolic murmur Vascular exam: ABSENT: pallor GI/Abdominal exam: PRESENT: normal bowel sounds, soft. ABSENT: distended, guarding, mass, organolmegaly, rebound, tenderness Rectal exam: PRESENT: deferred Extremities exam: PRESENT: tenderness - with palpation of right hip joint region and with joint maneuvering. ABSENT: pedal edema Musculoskeletal exam: PRESENT: tenderness - expressed tenderness with palpation of right lower extremity muscle mass Neurological exam: PRESENT: alert, awake, oriented to person, oriented to place, oriented to time, oriented to situation, CN II-XII grossly intact. ABSENT: motor sensory deficit Psychiatric exam: PRESENT: appropriate affect, normal mood. ABSENT: homicidal ideation, suicidal ideation Skin exam: PRESENT: dry, intact, warm. ABSENT: cyanosis, rash Results Laboratory Results: 10/16/19 15:07 10/16/19 15:07 10/16/19 10/16/19 10/16/19 15:07 15:07 15:55 WBC 6.0 RBC 5.15 Hgb 9.4 L Hct 30.9 L MCV 60 L MCH 18.2 L MCHC 30.3 L RDW 21.3 H Plt Count 290 Seg Neutrophils % 78.6 H Sodium 127.0 L Potassium 3.2 L Chloride 89 L Carbon Dioxide 29 Anion Gap 9 BUN 9 Creatinine 0.59 Est GFR ( Amer) > 60 Glucose 89 Lactic Acid 1.8 Calcium 8.7 Total Bilirubin 0.4 AST 25 Alkaline Phosphatase 66 Total Protein 6.4 Albumin 4.1 Urine Color Urine Appearance Urine pH Ur Specific [place] Urine Protein Urine Glucose (UA) Urine Ketones Urine Blood Urine Nitrite Ur Leukocyte Esterase Urine WBC (Auto) Urine RBC (Auto) 10/16/19 15:55 WBC RBC Hgb Hct MCV MCH MCHC RDW Plt Count Seg Neutrophils % Sodium Potassium Chloride Carbon Dioxide Anion Gap BUN Creatinine Est GFR ( Amer) Glucose Lactic Acid Calcium Total Bilirubin AST Alkaline Phosphatase Total Protein Albumin Urine Color YELLOW Urine Appearance CLEAR Urine pH 7.0 Ur Specific [place] 1.011 Urine Protein NEGATIVE Urine Glucose (UA) NEGATIVE Urine Ketones NEGATIVE Urine Blood NEGATIVE Urine Nitrite NEGATIVE Ur Leukocyte Esterase NEGATIVE Urine WBC (Auto) 3 Urine RBC (Auto) 1 Impressions: Chest X-Ray 10/16/19 14:48 IMPRESSION: Left lower lobe pneumonia and pleural effusion. Hip/Pelvis X-Ray 10/16/19 15:51 IMPRESSION: No fracture. Assessment & Plan - Diagnosis (1) LLL pneumonia Qualifiers: Pneumonia type: due to unspecified organism Qualified Code(s): J18.9 - Pneumonia, unspecified organism Is this a current diagnosis for this admission?: Yes Plan: See admitting attending physician orders for details about care plan. (2) Right leg pain Is this a current diagnosis for this admission?: Yes Plan: See admitting attending physician orders for details about care plan. (3) Hypokalemia Is this a current diagnosis for this admission?: Yes Plan: See admitting attending physician orders for details about care plan. (4) Hyponatremia Is this a current diagnosis for this admission?: Yes Plan: See admitting attending physician orders for details about care plan. (5) HTN (hypertension) Qualifiers: Hypertension type: essential hypertension Qualified Code(s): I10 - Essential (primary) hypertension Is this a current diagnosis for this admission?: Yes Plan: See admitting attending physician orders for details about care plan. (6) COPD (chronic obstructive pulmonary disease) Qualifiers: Emphysema type: unspecified Is this a current diagnosis for this admission?: Yes Plan: See admitting attending physician orders for details about care plan. (7) GERD (gastroesophageal reflux disease) Qualifiers: Esophagitis presence: esophagitis presence not specified Qualified Code(s): K21.9 - Gastro-esophageal reflux disease without esophagitis Is this a current diagnosis for this admission?: Yes Plan: See admitting attending physician orders for details about care plan. (8) History of lung cancer Is this a current diagnosis for this admission?: Yes Plan: See admitting attending physician orders for details about care plan. - Time Time Spent: 50 to 70 Minutes Medications reviewed and adjusted accordingly: Yes Anticipated discharge: Home with Homehealth Within: Other - Inpatient Certification Based on my medical assessment, after consideration of the patient's comorbidities, presenting symptoms, or acuity I expect that the services needed warrant INPATIENT care.: Yes I certify that my determination is in accordance with my understanding of Medicare's requirements for reasonable and necessary INPATIENT services [42 CFR 412.3e].: Yes Medical Necessity: Significant Comorbidiites Make Outpatient Treatment Too Risky, Need Close Monitoring Due to Risk of Patient Decompensation, Need For IV Fluids, Need for IV Antibiotics, Risk of Complication if Not Cared For in Hospital, Risk of Diagnosis Which Will Require Inpatient Eval/Care/Monitoring Post Hospital Care: D/C Manager Strategic Marketing Documentation - Plan Summary Plan Summary: See admitting attending physician orders for details about care plan.
--- NOTE | 2019-10-17 11:38 | Left Against Medical Advice ---
Against Medical Advice Admission Date/Time: 10/16/19 17:30 Primary Care Provider: DWAYNE WAHL Date of Patient Emigration: 10/17/19 - Diagnosis: (1) LLL pneumonia Is this a current diagnosis for this admission?: Yes (2) Right leg pain Is this a current diagnosis for this admission?: Yes (3) Hypokalemia Is this a current diagnosis for this admission?: Yes (4) Hyponatremia Is this a current diagnosis for this admission?: Yes (5) HTN (hypertension) Is this a current diagnosis for this admission?: Yes (6) COPD (chronic obstructive pulmonary disease) Is this a current diagnosis for this admission?: Yes (7) GERD (gastroesophageal reflux disease) Is this a current diagnosis for this admission?: Yes (8) History of lung cancer Is this a current diagnosis for this admission?: Yes - Summary: Summary: Please see Admission and Progress Notes as well. LUZ MARIA OAKLEY is a 74 F, who LEFT AGAINST MEDICAL ADVICE. The Patient was admitted on 10/16/19 17:30. She insisted upon discharge home today against medical advise. She was not please with ongoing service and lateness of her breakfast as reported to me by the nursing staff. Her initial evaluation was not in support of any focal weakness to support stroke and patient initially denied any loss of consciousness. Patient was mainly on Pregabalin for unclear reason but may alleviate neuropathic pain. She was managed with IV Morphine and maintain on [place] 5/325 mg q 4 hours prn for pain management with intention to adjust dose as appropriate. Please chart for details of her hospital stay. I hope she seek medical attention as needed.
[2019-10-17 12:44] LABS: PATH REVIEW PATHOLOGIST REVIEWED
== END 2019-10-17 10:01 | disposition left against medical advice (07) | DRG 194 ==
LOC: ER 14:46 → EH 17:30 → 4S 19:06
PROVIDERS: ADMIT Internal Medicine Geriatric Medicine; ATTEND Internal Medicine Geriatric Medicine
DX: J18.9 Pneumonia, unspecified organism (principal); E87.1 Hypo-osmolality and hyponatremia; J44.0 Chronic obstructive pulmonary disease with (acute) lower respiratory infection; E87.6 Hypokalemia; I10 Essential (primary) hypertension; K21.9 Gastro-esophageal reflux disease without esophagitis; F32.9 Major depressive disorder, single episode, unspecified; E03.9 Hypothyroidism, unspecified; M79.604 Pain in right leg; Z85.118 Personal history of other malignant neoplasm of bronchus and lung; Z93.0 Tracheostomy status; Z87.891 Personal history of nicotine dependence; Z90.2 Acquired absence of lung [part of]; Z79.899 Other long term (current) drug therapy; Z88.8 Allergy status to other drugs, medicaments and biological substances; Z91.048 Other nonmedicinal substance allergy status
CPT/HCPCS: 36415; 71045; 80053; 81001; 83605; 83735; 85025; 87040; 93005; 93010; 96361; 96374; 96375; 99285; J1956; J2270; J2405; J7030; J7050

== ENCOUNTER 2019-10-18 19:03 | Inpatient (IN) | payer MEDICARE ==
[2019-10-18 20:39] LABS: ALBUMIN 3.9 g/dL (3.5-5.0); ALKALINE PHOSPHATASE 69 U/L (38-126); ANION GAP 6 (5-19); ASPARTATE AMINO TRANSFERASE 46 U/L (14-36); BILIRUBIN,TOTAL 0.4 mg/dL (0.2-1.3); BLOOD UREA NITROGEN 7 mg/dL (7-20); CALCIUM 8.7 mg/dL (8.4-10.2); CARBON DIOXIDE 28 mmol/L (22-30); CHLORIDE 91 mmol/L (98-107); GLUCOSE 94 mg/dL (75-110); POTASSIUM 3.9 mmol/L (3.6-5.0); TOTAL PROTEIN 6.2 g/dL (6.3-8.2)
[2019-10-18] MEDS ORDERED: MORPHINE SULFATE 10 MG/ML INJ IV ONE (20:43)
--- NOTE | 2019-10-18 20:47 | RADIOLOGY REPORT (SQ) ---
\ EXAM DESCRIPTION: Radiographs of the pelvis and right hip CLINICAL HISTORY: 74 years Female, pain COMPARISON: Radiographs the pelvis and right hip 10/16/2019 FINDINGS: Bone mineralization is diminished. The hips are located bilaterally. Probable nondisplaced fracture of the right superior and inferior pubic rami. Visualized portion of the sacrum and SI joints are unremarkable. There is vascular calcifications and phleboliths in the pelvis. Views of the right hip demonstrate medial joint space narrowing. No definitive fracture. IMPRESSION: Osteopenia. Probable fracture of the right superior and inferior pubic rami.
[2019-10-18 21:10] LABS: HEMATOCRIT 30.8 % (36.0-47.0); HEMOGLOBIN 9.3 g/dL (12.0-15.5); MEAN CORPUSCULAR HEMOGLOBIN 18.2 pg (27.0-33.4); MEAN CORPUSCULAR HGB CONC 30.3 g/dL (32.0-36.0); MEAN CORPUSCULAR VOLUME 60 fl (80-97); PLATELET COUNT 310 10^3/uL (150-450); RED BLOOD COUNT 5.14 10^6/uL (3.72-5.28); RED CELL DISTRIBUTION WIDTH 21.3 % (11.5-14.0); WHITE BLOOD COUNT 6.5 10^3/uL (4.0-10.5)
[2019-10-18 21:16] LABS: ABSOLUTE LYMPHOCYTES# (MANUAL) 0.8 10^3/uL (0.5-4.7); ABSOLUTE MONOCYTES # (MANUAL) 0.6 10^3/uL (0.1-1.4); BASOPHILS % (MANUAL) 2 % (0-2); EOSINOPHILS % (MANUAL) 1 % (0-6); HYPOCHROMASIA 3+; LYMPHOCYTES % (MANUAL) 12 % (13-45); MONOCYTES % (MANUAL) 9 % (3-13); POIKILOCYTOSIS SLIGHT; SEGMENTED NEUTROPHILS % (MAN) 76 % (42-78); TOTAL CELLS COUNTED 100; TOXIC GRANULATION SLIGHT
[2019-10-18 21:17] LABS: PLATELET COMMENT ADEQUATE; PLATELET GIANT PRESENT; PLATELET LARGE PRESENT; SCHISTOCYTES SLIGHT; TARGET CELLS SLIGHT
--- NOTE | 2019-10-18 21:18 | ER Document Report ---
ED General - General Chief Complaint: General Weakness Stated Complaint: GENERALIZED WEAKNESS Time Seen by Provider: 10/18/19 19:17 Primary Care Provider: DWAYNE WAHL MD [Primary Care Provider] - Follow up as needed Mode of Arrival: Medic Information source: Patient TRAVEL OUTSIDE OF THE [place] IN LAST 30 DAYS: No - HPI Notes: Patient comes in complaining of right hip pain. She denies any type of falls or trauma. She is also had some increasing shortness of breath over the last 2 to 3 days she states. No new cough. No no fever. No known covert exposures. She did leave AGAINST MEDICAL ADVICE from the hospital yesterday after being admitted. The pain in the right lower extremity is mainly in the right upper thigh and right lateral hip. It is constant. It is worse with ambulation and better with rest. It radiates down the right leg. It is sharp. It is moderate in intensity. - Related Data Allergies/Adverse Reactions: adhesive tape Allergy (Verified 10/18/19 19:36) iodine Allergy (Verified 10/18/19 19:36) Past Medical History - General Information source: Patient - Social History Smoking Status: Former Smoker Frequency of alcohol use: None Drug Abuse: None Family History: Reviewed & Not Pertinent Patient has homicidal ideation: No - Past Medical History Cardiac Medical History: Reports: Hx Hypertension Pulmonary Medical History: Reports: Hx COPD Malignancy Medical History: Reports: Hx Lung Cancer GI Medical History: Reports: Hx Gastroesophageal Reflux Disease Psychiatric Medical History: Reports: Hx Depression Past Surgical History: Reports: Other - Tracheostomy, lobectomy - Immunizations Hx Pneumococcal Vaccination: 06/08/18 Review of Systems - Review of Systems Constitutional: denies: Chills, Fever Cardiovascular: denies: Chest pain, Palpitations Respiratory: Cough, Short of breath -: Yes All other systems reviewed and negative Physical Exam - Vital signs Vitals: Temp 97.7 F 10/18/19 19:02 Interpretation: Normal - General General appearance: Appears well, Alert - HEENT Head: Normocephalic, Atraumatic Eyes: Normal Pupils: PERRL - Respiratory Respiratory status: No respiratory distress Chest status: Nontender Breath sounds: Decreased air movement Chest palpation: Normal - Cardiovascular Rhythm: Irregularly irregular, Tachycardia Heart sounds: Normal auscultation Murmur: No - Abdominal Inspection: Normal Distension: No distension Bowel sounds: Normal Tenderness: Nontender Organomegaly: No organomegaly - Back Back: Normal, Nontender - Extremities General upper extremity: Normal inspection, Nontender, Normal color, Normal ROM, Normal temperature General lower extremity: Normal inspection, Tender - Right lower extremity is tender to palpation of the anterior right hip joint and anterior right upper thigh., Normal color, Normal temperature, Other - Right hip has limited range of motion.. No: Abigail's sign - Neurological Neuro grossly intact: Yes Cognition: Normal Orientation: AAOx4 [place] Coma Scale Eye Opening: Spontaneous [place] Coma Scale Verbal: Oriented [place] Coma Scale Motor: Obeys Commands [place] Coma Scale Total: 15 Speech: Normal Motor strength normal: LUE, RUE, LLE, RLE Sensory: Normal - Psychological Associated symptoms: Normal affect, Normal mood - Skin Skin Temperature: Warm Skin Moisture: Dry Skin Color: Normal Course - Re-evaluation Re-evalutation: 10/18/19 22:24 I turned the patient over to Dr. Nixon at approximate 10 PM. She will follow-up on CT scan determine final disposition. - Vital Signs Vital signs: Temp Pulse Resp BP Pulse Ox 97.7 F 16 122/70 97 10/18/19 19:05 10/18/19 20:32 10/18/19 20:32 10/18/19 20:00 - Laboratory Result Diagrams: 10/18/19 19:05 10/18/19 19:05 Laboratory results interpreted by me: 10/18/19 10/18/19 19:05 19:05 Hgb 9.3 L Hct 30.8 L MCV 60 L MCH 18.2 L MCHC 30.3 L RDW 21.3 H Lymphocytes % (Manual) 12 L Sodium 125.3 L Chloride 91 L AST 46 H Total Protein 6.2 L - Diagnostic Test Radiology reviewed: Image reviewed, Reports reviewed - EKG Interpretation by Me Rate: Tachycardia - 110 Rhythm: A.Fib B[place]te/QRS: Right axis deviation Discharge - Discharge Clinical Impression: Hyponatremia Fracture of right superior pubic ramus Qualifiers: Encounter type: initial encounter Fracture type: closed Qualified Code(s): S32.511A - Fracture of superior rim of right pubis, initial encounter for closed fracture Fracture of right inferior pubic ramus Qualifiers: Encounter type: initial encounter Fracture type: closed Qualified Code(s): S32.591A - Other specified fracture of right pubis, initial encounter for closed fracture Condition: Stable Disposition: OTHER Referrals: DWAYNE WAHL MD [Primary Care Provider] - Follow up as needed
--- NOTE | 2019-10-18 22:48 | RADIOLOGY REPORT (SQ) ---
CT LOWER EXTREMITY WITHOUT IV CONTRAST EXAM DATE: 10/18/2019 9:14 PM CDT HISTORY: Probable fracture of the right superior and inferior pubic rami. COMPARISON: Radiographs from earlier the same day. TECHNIQUE: CT scan of the right hip was performed without IV contrast. This exam was performed according to our departmental dose-optimization program, which includes automated exposure control, adjustment of the mA and/or kV according to patient size and/or use of iterative reconstruction technique. FINDINGS: No acute fracture or dislocation is seen. There are mild degenerative changes of the right sacroiliac joint and pubic symphysis. The right hip joint is intact. There is a few subcutaneous edema overlying the right hip. No foreign body seen. The visualized intrapelvic structures demonstrate no acute findings. IMPRESSION: 1. No acute fracture of the right hip. 2. Soft tissue contusion overlying the right hip.
--- NOTE | 2019-10-19 01:44 | ER Document Report ---
Doctor's Note Notes: 10/19/19 01:42 Patient turned over to me by Dr. Munoz pending CT results for possible pelvic fracture. No emergent findings on CT and I called Dr. Greenwood to have patient admitted for additional inpatient work-up of her weakness/hyponatremia. I additionally ordered a d-dimer because of patient's complaints of shortness of breath and age which was positive. As patient ready present on floor I called was inquired to alert him of this finding and discussed the plan. He said that he would prophylactically treat her pending work-up for possible DVT/PE in the morning and will contact floor care team to alert them. Patient had no respiratory distress in ED and is not requiring any supplemental oxygen.
[2019-10-19] MEDS: OXYCODONE-ACETAMINOPHEN 5-325 MG TABLET PO PRN ×4 (02:31→19:27)
[2019-10-19] MEDS: ENOXAPARIN SODIUM INJ 80 MG/0.8 ML DISP.SYRIN SUBCUT SCH ×3 (02:37→22:15)
[2019-10-19] MEDS: NORMAL SALINE 1000 ML 1,000 ML IV PRN ×2 (02:38→13:42)
[2019-10-19] MEDS ORDERED: PANTOPRAZOLE SODIUM 40 MG TABLET.DR PO SCH (07:00)
--- NOTE | 2019-10-19 08:43 | EKG REPORT ---
SEVERITY:- ABNORMAL ECG - ATRIAL FIBRILLATION MULTIFORM VENTRICULAR PREMATURE COMPLEXES RBBB AND LPFB : Confirmed by: Bina Martinez 19-Oct-2019 08:42:51
[2019-10-19 09:56] LABS: INTERNATIONAL RATION (INR) 1.15; PROTHROMBIN TIME 14.8 SEC (11.4-15.4)
[2019-10-19] MEDS ORDERED: (PENDING PHARMACY ID) (Fexofenadine Hcl [Allegra Allergy] 180 MG) PO SCH (10:00)
[2019-10-19] MEDS: METOPROLOL SUCCINATE 25 MG TAB.SR.24H PO SCH (10:56)
[2019-10-19] MEDS: ESCITALOPRAM OXALATE 10 MG TABLET PO SCH (10:56)
[2019-10-19] MEDS: FAMOTIDINE 20 MG TABLET PO SCH ×2 (10:56→18:35)
[2019-10-19] MEDS: LORATADINE 10 MG TABLET PO SCH (10:56)
[2019-10-19] MEDS: CHOLECALCIFEROL (D3) 1,000 UNIT (25 MCG) TABLET PO SCH (10:57)
--- NOTE | 2019-10-19 12:46 | RADIOLOGY REPORT (SQ) ---
EXAM DESCRIPTION: VENOUS BILATERAL LOWER IMAGES COMPLETED DATE/TIME: 10/19/2019 11:32 am REASON FOR STUDY: BLE SWELLING/PAIN, POSITIVE D-DIMER M79.604 PAIN IN RIGHT LEG COMPARISON: None. TECHNIQUE: Dynamic and static pearl scale and color images acquired of both lower extremity venous sy stems. Selected spectral images acquired with additional compression and augmentation maneuvers. Imag es stored on PACS. LIMITATIONS: None. FINDINGS: RIGHT LEG COMMON FEMORAL AND FEMORAL: Normal phasicity, compression and augmentation. No visualized echogenic m aterial on pearl scale. No defects on color images. POPLITEAL: Normal compression and augmentation. No visualized echogenic material on pearl scale. No de fects on color images. CALF VESSELS: Normal compression and augmentation. No visualized echogenic material on pearl scale. No defects on color image. GSV AND SSV: Normal compression. No visualized echogenic material on pealr scale. No defects on color images. ANY DEEP VENOUS INSUFFICIENCY: No. ANY EVIDENCE OF POPLITEAL CYST: No. OTHER: No other finding. LEFT LEG COMMON FEMORAL AND FEMORAL: Normal phasicity, compression and augmentation. No visualized echogenic m aterial on pearl scale. No defects on color images. POPLITEAL: Normal compression and augmentation. No visualized echogenic material on pearl scale. No de fects on color images. CALF VESSELS: Normal compression and augmentation. No visualized echogenic material on pearl scale. No defects on color images. GSV AND SSV: Normal compression. No visualized echogenic material on pearl scale. No defects on color images. ANY DEEP VENOUS INSUFFICIENCY: No. ANY EVIDENCE POPLITEAL CYST: No. OTHER: No other finding. IMPRESSION: NO EVIDENCE DVT OR SVT IN EITHER LEG. TECHNICAL DOCUMENTATION: JOB ID: [id number] 2010 [employer]- All Rights Reserved Reading location - IP/workstation name: [email or web address]
--- NOTE | 2019-10-19 19:14 | PDOC H&P ---
History of Present Illness Admission Date/PCP: 10/18/19 23:45 DWAYNE CHILDERSJEANNETTECORY Patient complains of: Weakness History of Present Illness: LUZ MARIA OAKLEY is a 74 year old female patient known to my practice who recently signed out from this hospital against medical advise and returned to the ED wit complain about worsening generalized weakness for couple of days. She reported poor appetite and PO intake but remain on mainly liquid diet due to her tracheostomy following her lung cancer. She reported associated increasing shortness of breath but denied any worsening cough or increase secretion through her tracheostomy. She reported continued right hip region and thigh pain since her initial presentation before signing out against medical advise. She describe d pain as sharp and deep seated. She graded pain at 10/10 with attempt to walk. There is associated difficulty with walking due to the pain. She denied any fall, injury, or trauma but spouse reported that patient slide off her bed to the floor about 3 weeks ago. No fever or chills. No nausea, vomiting or abdominal pain. No leg swelling. her initial evaluation in the ED was significant for persistent hyponatremia, microcytic anemia. Her Hip/pelvic X ray suggested osteopenia with probable right superior and inferior rami fracture and her CT lower extremity revealed soft tissue contusion over right hip joint without acute fracture. Her EKG revealed atrial fibrillation with multiform ventricular premature complex, RBBB and LAFB. Her morbidities are as stated below. She was advised hospitalization for further evaluation and management. Past Medical History Cardiac Medical History: Reports: Hypertension Pulmonary Medical History: Reports: Chronic Obstructive Pulmonary Disease (COPD) Malignancy Medical History: Reports: Lung Cancer GI Medical History: Reports: Gastroesophageal Reflux Disease Psychiatric Medical History: Reports: Depression Past Surgical History Past Surgical History: Reports: Other - Tracheostomy, lobectomy Social History Smoking Status: Former Smoker Frequency of Alcohol Use: None Hx Recreational Drug Use: No Drugs: None Hx Prescription Drug Abuse: No - Advance Directive Resuscitation Status: Do Not Resuscitate Family History Family History: Reviewed & Not Pertinent Parental Family History Reviewed: Yes Children Family History Reviewed: Yes Sibling(s) Family History Reviewed.: Yes Medication/Allergy Home Medications: Alprazolam [Xanax 0.5 mg Tablet] 0.5 mg PO QHS 04/03/19 Escitalopram Oxalate [Lexapro 10 mg Tablet] 10 mg PO DAILY 04/03/19 Furosemide [Lasix 20 mg Tablet] 20 mg PO DAILY 04/03/19 Levothyroxine Sodium 88 mcg PO Q6AM 04/03/19 Metoprolol Succinate [Toprol Xl 25 mg Tab.sr] 25 mg PO DAILY 04/03/19 Omeprazole 40 mg PO DAILY 04/03/19 Pregabalin 50 mg PO QHS 04/03/19 Fexofenadine HCl [Chrissie Allergy] 180 mg PO DAILY 10/17/19 Hydrochlorothiazide 12.5 mg PO DAILY 10/18/19 Cholecalciferol (Vitamin D3) [Vitamin D3 1000 Unit Tablet] 1,000 units PO DAILY 10/19/19 Allergies/Adverse Reactions: adhesive tape Allergy (Verified 10/18/19 19:36) iodine Allergy (Verified 10/18/19 19:36) Review of Systems Constitutional: PRESENT: anorexia, chills Eyes: ABSENT: visual disturbances Ears: PRESENT: hearing changes Nose, Mouth, and Throat: ABSENT: headache(s), mouth pain, sore throat, vertigo Cardiovascular: PRESENT: dyspnea on exertion, palpitations - spouse reported history of erratic heart beat as per her previous PCP but not on any anticoagulation to his knowledge. Respiratory: PRESENT: cough, dyspnea, sputum Gastrointestinal: ABSENT: abdominal pain, constipation, diarrhea, hematemesis, hematochezia, nausea, vomiting Genitourinary: ABSENT: dysuria, hematuria Musculoskeletal: PRESENT: deformity - related to multiple jpints involvement with arthritis Integumentary: ABSENT: rash, wounds Neurological: PRESENT: abnormal gait, abnormal movements, abnormal speech - due to her tracheostomy, focal weakness, frequent falls - slide to the floor about 3 weeksago and remain on the floor for awhile., weakness - right arm and leg Psychiatric: ABSENT: anxiety, depression, homidical ideation, suicidal ideation Endocrine: PRESENT: cold intolerance. ABSENT: heat intolerance, polydipsia, polyuria Hematologic/Lymphatic: ABSENT: easy bleeding, easy bruising, lymphadenopathy Allergic/Immunologic: ABSENT: seasonal rhinorrhea Physical Exam Vital Signs: Temp Pulse Resp BP Pulse Ox 98.4 F 100 16 113/47 L 91 L 10/19/19 03:50 10/19/19 03:50 10/19/19 03:50 10/19/19 03:50 10/19/19 03:50 Intake & Output 10/18/19 10/19/19 10/20/19 06:59 06:59 06:59 Weight 59.7 kg General appearance: PRESENT: mild distress - with trach tent in use Head exam: PRESENT: atraumatic, normocephalic Eye exam: PRESENT: conjunctiva pink. ABSENT: scleral icterus Ear exam: PRESENT: normal external ear exam Mouth exam: PRESENT: moist Teeth exam: PRESENT: poor dentation Neck exam: PRESENT: tracheostomy Respiratory exam: PRESENT: clear to auscultation lee ann, decreased breath sounds - at lung bases Cardiovascular exam: PRESENT: RRR, +S1, +S2. ABSENT: diastolic murmur, rubs, systolic murmur Vascular exam: ABSENT: pallor GI/Abdominal exam: PRESENT: normal bowel sounds, soft. ABSENT: distended, guarding, mass, organolmegaly, rebound, tenderness Rectal exam: PRESENT: deferred Extremities exam: ABSENT: pedal edema Musculoskeletal exam: PRESENT: deformity - related to multiple joint involvement with arthritis Neurological exam: PRESENT: alert, awake, oriented to person, oriented to place, oriented to time, oriented to situation, CN II-XII grossly intact. ABSENT: motor sensory deficit, normal gait Psychiatric exam: PRESENT: appropriate affect, normal mood. ABSENT: homicidal ideation, suicidal ideation Skin exam: PRESENT: dry, warm Results Laboratory Results: 10/18/19 19:05 10/18/19 19:05 10/18/19 10/18/19 19:05 19:05 WBC 6.5 RBC 5.14 Hgb 9.3 L Hct 30.8 L MCV 60 L MCH 18.2 L MCHC 30.3 L RDW 21.3 H Plt Count 310 Seg Neutrophils % Not Reportable Sodium 125.3 L Potassium 3.9 Chloride 91 L Carbon Dioxide 28 Anion Gap 6 BUN 7 Creatinine 0.53 Est GFR ( Amer) > 60 Glucose 94 Calcium 8.7 Total Bilirubin 0.4 AST 46 H Alkaline Phosphatase 69 Total Protein 6.2 L Albumin 3.9 10/18/19 19:05 Troponin I 0.023 Impressions: Hip/Pelvis X-Ray 10/18/19 19:47 IMPRESSION: Osteopenia. Probable fracture of the right superior and inferior pubic rami. Lower Extremity CT 10/18/19 21:14 IMPRESSION: 1. No acute fracture of the right hip. 2. Soft tissue contusion overlying the right hip. Assessment & Plan - Diagnosis (1) Generalized weakness Is this a current diagnosis for this admission?: Yes Plan: See admitting attending physician orders for details about care plan. In view of her reported sliding off her bed and subsequent right sided weakness, negative DVT and elevated D-Dimer, I will request for CT head for further evaluation of possible stroke. (2) Hyponatremia Is this a current diagnosis for this admission?: Yes Plan: See admitting attending physician orders for details about care plan. (3) Atrial fibrillation by electrocardiogram Is this a current diagnosis for this admission?: Yes Plan: See admitting attending physician orders for details about care plan. (4) Soft tissue injury of right hip Qualifiers: Encounter type: initial encounter Qualified Code(s): S79.911A - Unspecified injury of right hip, initial encounter Is this a current diagnosis for this admission?: Yes Plan: See admitting attending physician orders for details about care plan. (5) Fall Qualifiers: Encounter type: initial encounter Qualified Code(s): W19.XXXA - Unspecified fall, initial encounter Is this a current diagnosis for this admission?: Yes Plan: See admitting attending physician orders for details about care plan. (6) Microcytic anemia Is this a current diagnosis for this admission?: Yes Plan: See admitting attending physician orders for details about care plan. (7) HTN (hypertension) Qualifiers: Hypertension type: essential hypertension Qualified Code(s): I10 - Essential (primary) hypertension Is this a current diagnosis for this admission?: Yes Plan: See admitting attending physician orders for details about care plan. (8) COPD (chronic obstructive pulmonary disease) Qualifiers: Emphysema type: unspecified Is this a current diagnosis for this admission?: Yes Plan: See admitting attending physician orders for details about care plan. (9) GERD (gastroesophageal reflux disease) Qualifiers: Esophagitis presence: esophagitis presence not specified Qualified Code(s): K21.9 - Gastro-esophageal reflux disease without esophagitis Is this a current diagnosis for this admission?: Yes Plan: See admitting attending physician orders for details about care plan. (10) Osteopenia after menopause Is this a current diagnosis for this admission?: Yes Plan: See admitting attending physician orders for details about care plan. (11) Depression Qualifiers: Depression Type: unspecified Qualified Code(s): F32.9 - Major depressive disorder, single episode, unspecified Is this a current diagnosis for this admission?: Yes (12) History of lung cancer Is this a current diagnosis for this admission?: Yes Plan: See admitting attending physician orders for details about care plan. (13) Inability to walk Is this a current diagnosis for this admission?: Yes Plan: This may be due to her probable right superior and inferior rami fracture as suggested on her hip/pelvic X ray although her CT scan suggested no acute fracture. Osteal reaction to the fracture may be delayed due to her osteopenic status. If possible I barbara discuss with radiologist about MRI evaluation. (14) Elevated d-dimer Is this a current diagnosis for this admission?: Yes Plan: In view of her presentation we will start her on Lvenox therapy pending lower extremities venous Doppler evaluation for DVT. - Time Time Spent: 50 to 70 Minutes Medications reviewed and adjusted accordingly: Yes Anticipated discharge: Home with Homehealth Within: Other - Inpatient Certification Based on my medical assessment, after consideration of the patient's comorbidities, presenting symptoms, or acuity I expect that the services needed warrant INPATIENT care.: Yes I certify that my determination is in accordance with my understanding of Medicare's requirements for reasonable and necessary INPATIENT services [42 CFR 412.3e].: Yes Medical Necessity: Significant Comorbidiites Make Outpatient Treatment Too Risky, Need Close Monitoring Due to Risk of Patient Decompensation, Need For IV Fluids, Need For Continuous Telemetry Monitoring, Need for Nebulizer Therapy and Monitoring of Response, Need for Pain Control, Risk of Complication if Not Cared For in Hospital, Risk of Diagnosis Which Will Require Inpatient Eval/Care/Monitoring 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 I will convert her hospitalization to full inpatient and transfer her to [facility] in view of her cardiac discovery.
--- NOTE | 2019-10-19 19:28 | RADIOLOGY REPORT (SQ) ---
EXAM DESCRIPTION: CT HEAD WITHOUT IMAGES COMPLETED DATE/TIME: 10/19/2019 7:00 pm REASON FOR STUDY: Reported Right Arm weakness, Elevated D-Dimer M79.604 PAIN IN RIGHT LEG COMPARISON: None. TECHNIQUE: Axial images acquired through the brain without intravenous contrast. Images reviewed wi th bone, brain and subdural windows. Additional sagittal and coronal reconstructions were generated. Images stored on PACS. All CT scanners at this facility use dose modulation, iterative reconstruction, and/or weight based d osing when appropriate to reduce radiation dose to as low as reasonably achievable (ALARA). [facility]: Dose Right [facility]: CareDose [facility]: Dose Right [facility]: Teradose 4D [facility]: [employer] RADIATION DOSE: CT Rad equipment meets quality standard of care and radiation dose reduction techniq ues were employed. CTDIvol: 53.2 mGy. DLP: 1044 mGy-cm. mGy. LIMITATIONS: None. FINDINGS: VENTRICLES: Prominent ventricles secondary to involutional atrophy. CEREBRUM: Cortical atrophy. No masses. No hemorrhage. No midline shift. No evidence for acute inf arction. Few scattered areas of low density in the white matter most likely chronic small vessel isch emic changes. CEREBELLUM: No masses. No hemorrhage. No alteration of density. No evidence for acute infarction. EXTRAAXIAL SPACES: No fluid collections. No masses. ORBITS AND GLOBE: No intra- or extraconal masses. Normal contour of globe without masses. CALVARIUM: No fracture. PARANASAL SINUSES: No fluid or mucosal thickening. SOFT TISSUES: No mass or hematoma. OTHER: No other significant finding. IMPRESSION: Involutional changes with mild chronic microvascular ischemia. No acute intracranial im aging findings. EVIDENCE OF ACUTE STROKE: NO. COMMENT: Quality ID # [id number]: Final reports with documentation of one or more dose reduction techniques (e.g., Automated exposure control, adjustment of the mA and/or kV according to patient size, use of iterative reconstruction technique) TECHNICAL DOCUMENTATION: JOB ID: [id number] 2010 [employer]- All Rights Reserved Reading location - IP/workstation name: [email or web address]
[2019-10-19] MEDS: PREGABALIN 50 MG CAPSULE PO SCH (22:15)
[2019-10-19] MEDS: ALPRAZOLAM 0.5 MG TABLET PO SCH (22:15)
[2019-10-20] MEDS: NORMAL SALINE 1000 ML 1,000 ML IV PRN ×3 (00:21→18:22)
[2019-10-20] MEDS: OXYCODONE-ACETAMINOPHEN 5-325 MG TABLET PO PRN (00:21)
[2019-10-20] MEDS ORDERED: MORPHINE SULFATE 10 MG/ML INJ IV PRN ×2 (04:29→04:31)
[2019-10-20] MEDS: LEVOTHYROXINE SODIUM 0.088 MG TABLET PO SCH (05:16)
[2019-10-20] MEDS: MORPHINE SULFATE 10 MG/ML INJ IV PRN ×2 (09:25→14:54)
[2019-10-20] MEDS: FAMOTIDINE 20 MG TABLET PO SCH ×2 (09:26→17:22)
[2019-10-20] MEDS: METOPROLOL SUCCINATE 25 MG TAB.SR.24H PO SCH (09:26)
[2019-10-20] MEDS: ESCITALOPRAM OXALATE 10 MG TABLET PO SCH (09:26)
[2019-10-20] MEDS: LORATADINE 10 MG TABLET PO SCH (09:26)
[2019-10-20] MEDS: CHOLECALCIFEROL (D3) 1,000 UNIT (25 MCG) TABLET PO SCH (09:26)
[2019-10-20] MEDS: ENOXAPARIN SODIUM INJ 80 MG/0.8 ML DISP.SYRIN SUBCUT SCH ×2 (09:27→21:23)
--- NOTE | 2019-10-20 19:23 | PDOC PROGRESS REPORT ---
Subjective Progress Note for:: 10/20/19 Subjective:: Patient continue to experience significant pain with motion, particularly attempts at getting out of bed, and associated tachycardia and diaphoresis. Her pelvix X ray suggested right superior and inferior rami fracture which clinically is highly suspected as source of her pain with motion. She denied any chest pain and her breathing has been stable at baseline. No fever or chills. No nausea or vomiting. Reason For Visit: GENERALIZED WEAKNESS,NEWLY DIAGNOSED Physical Exam Vital Signs: Temp Pulse Resp BP Pulse Ox 98.6 F 97 14 91/49 L 95 10/20/19 16:17 10/20/19 16:19 10/20/19 16:19 10/20/19 16:19 10/20/19 16:45 Intake & Output 10/19/19 10/20/19 10/21/19 06:59 06:59 06:59 Intake Total 2900 1801 Output Total 125 Balance 2775 1801 Weight 59.7 kg 64.6 kg 64.6 kg General appearance: PRESENT: mild distress - with trach tent supplemental oxygen. Head exam: PRESENT: atraumatic, normocephalic Eye exam: PRESENT: conjunctiva pink. ABSENT: scleral icterus Ear exam: PRESENT: normal external ear exam Mouth exam: PRESENT: moist Neck exam: PRESENT: tracheostomy Respiratory exam: PRESENT: clear to auscultation lee ann, decreased breath sounds - at baseline Cardiovascular exam: PRESENT: irregular rhythm, +S1, +S2. ABSENT: diastolic murmur, rubs, systolic murmur Vascular exam: ABSENT: pallor GI/Abdominal exam: PRESENT: normal bowel sounds, soft. ABSENT: distended, guarding, mass, organolmegaly, rebound, tenderness Extremities exam: ABSENT: pedal edema Musculoskeletal exam: PRESENT: deformity - multiple joints due to involvement with arthritis Neurological exam: PRESENT: altered - occasionally while talking to her but easily arousable and oriented. Skin exam: PRESENT: dry, warm Results Laboratory Results: 10/18/19 19:05 10/18/19 19:05 10/18/19 19:05 Troponin I 0.023 Impressions: Hip/Pelvis X-Ray 10/18/19 19:47 IMPRESSION: Osteopenia. Probable fracture of the right superior and inferior pubic rami. Lower Extremity CT 10/18/19 21:14 IMPRESSION: 1. No acute fracture of the right hip. 2. Soft tissue contusion overlying the right hip. Venous Doppler Study 10/19/19 00:00 IMPRESSION: NO EVIDENCE DVT OR SVT IN EITHER LEG. Head CT 10/19/19 18:00 IMPRESSION: Involutional changes with mild chronic microvascular ischemia. No acute intracranial imaging findings. EVIDENCE OF ACUTE STROKE: NO. Assessment & Plan - Diagnosis (1) Generalized weakness Is this a current diagnosis for this admission?: Yes (2) Hyponatremia Is this a current diagnosis for this admission?: Yes (3) Atrial fibrillation by electrocardiogram Is this a current diagnosis for this admission?: Yes (4) Soft tissue injury of right hip Qualifiers: Encounter type: initial encounter Qualified Code(s): S79.911A - Unspecified injury of right hip, initial encounter Is this a current diagnosis for this admission?: Yes (5) Fall Qualifiers: Encounter type: initial encounter Qualified Code(s): W19.XXXA - Unspecified fall, initial encounter Is this a current diagnosis for this admission?: Yes (6) Microcytic anemia Is this a current diagnosis for this admission?: Yes (7) HTN (hypertension) Qualifiers: Hypertension type: essential hypertension Qualified Code(s): I10 - Essential (primary) hypertension Is this a current diagnosis for this admission?: Yes (8) COPD (chronic obstructive pulmonary disease) Qualifiers: Emphysema type: unspecified Is this a current diagnosis for this admission?: Yes (9) GERD (gastroesophageal reflux disease) Qualifiers: Esophagitis presence: esophagitis presence not specified Qualified Code(s): K21.9 - Gastro-esophageal reflux disease without esophagitis Is this a current diagnosis for this admission?: Yes (10) Osteopenia after menopause Is this a current diagnosis for this admission?: Yes (11) Depression Qualifiers: Depression Type: unspecified Qualified Code(s): F32.9 - Major depressive di sorder, single episode, unspecified Is this a current diagnosis for this admission?: Yes (12) History of lung cancer Is this a current diagnosis for this admission?: Yes (13) Inability to walk Is this a current diagnosis for this admission?: Yes (14) Elevated d-dimer Is this a current diagnosis for this admission?: Yes (15) Closed fracture of right superior pubic ramus Qualifiers: Encounter type: initial encounter Qualified Code(s): S32.511A - Fracture of superior rim of right pubis, initial encounter for closed fracture Is this a current diagnosis for this admission?: Yes Plan: See attending physician orders. (16) Closed fracture of right inferior pubic ramus Qualifiers: Encounter type: initial encounter Qualified Code(s): S32.591A - Other specified fracture of right pubis, initial encounter for closed fracture Is this a current diagnosis for this admission?: Yes Plan: See attending physician orders. - Time Time Spent with patient: 25-34 minutes Level of Care: IMCU Medications reviewed and adjusted accordingly: Yes Anticipated discharge: Home with Homehealth Within: Other - Inpatient Certification Based on my medical assessment, after consideration of the patient's comorbidities, presenting symptoms, or acuity I expect that the services needed warrant INPATIENT care.: Yes I certify that my determination is in accordance with my understanding of Medicare's requirements for reasonable and necessary INPATIENT services [42 CFR 412.3e].: Yes Medical Necessity: Significant Comorbidiites Make Outpatient Treatment Too Risky, Need Close Monitoring Due to Risk of Patient Decompensation, Need For IV Fluids, Need For Continuous Telemetry Monitoring, Risk of Complication if Not Cared For in Hospital, Risk of Diagnosis Which Will Require Inpatient Eval/Care/Monitoring Post Hospital Care: D/C Contact Lens Manufacturer Documentation - Plan Summary Plan Summary: D/C IV Morphine. Start on graded Percocet therapy for pain management. Emphasized bed rest to patient and the use of urinary purwick device to limit her need for transferring out of the bed. Continue all other current medication management.
[2019-10-20] MEDS ORDERED: OXYCODONE-ACETAMINOPHEN 5-325 MG TABLET PO PRN ×2 (19:26)
[2019-10-20] MEDS: ALPRAZOLAM 0.5 MG TABLET PO SCH (21:23)
[2019-10-20] MEDS: PREGABALIN 50 MG CAPSULE PO SCH (21:23)
[2019-10-20] MEDS ORDERED: NORMAL SALINE 500 ML IV ONE (22:30)
[2019-10-21 04:16] VITALS: BP 83/50
[2019-10-21 05:28] LABS: ARTERIAL BLOOD BASE EXCESS -19.4 mmol/L; ARTERIAL BLOOD H2CO3 1.27 mmol/L (1.05-1.35); ARTERIAL BLOOD HCO3 10.1 mmol/L (20-24); ARTERIAL BLOOD O2 SATURATION 71.9 % (94-98); ARTERIAL BLOOD PCO2 42.3 mmHg (35-45); ARTERIAL BLOOD PO2 55.8 mmHg (80-100); ARTERIAL BLOOD TOTAL CO2 11.4 mmol/L (21-25)
[2019-10-21 05:30] LABS: ARTERIAL BLOOD FIO2 70%
[2019-10-21] MEDS ORDERED: DIGOXIN INJ 0.5 MG/2 ML AMPULE IV ONE (05:30)
[2019-10-21] MEDS ORDERED: SODIUM BICARBONATE 8.4% INJ 50 MEQ/50 ML DISP.SYRIN ONE (05:37)
[2019-10-21] MEDS ORDERED: ATROPINE SULFATE INJ 1 MG/10 ML DISP.SYRIN IV ONE (05:37)
[2019-10-21] MEDS: LEVOTHYROXINE SODIUM 0.088 MG TABLET PO SCH (07:00)
--- NOTE | 2019-10-21 07:18 | PDOC CONSULTATION ---
Consultation Consult Date: 10/21/19 Attending physician:: DWAYNE WAHL Provider Consulted: NEEL ESPINOZA Consult reason:: Critical Care assessement. History of Present Illness Admission Date/PCP: 10/18/19 23:45 DAWYNE WAHL History of Present Illness: LUZ MARIA OAKLEY is a 74 year old female history of COPD, lung cancer, status post tracheostomy with open stoma. Patient presented on 10/18/2019 with complaints of worsening shortness of breath. She also complained of right hip pain and difficulty walking due to the pain. She was found to have a probable right s uperior and inferior rami fracture. Her EKG at time of admission showed atrial fibrillation with RVR, as well as RBBB. I was initially called to the patient's bedside by her nurse and consult was con firmed by her attending physician. I arrived to find and intermittently alert woman with a week pulse. Report from RN states that she had been awake and alert throughout the course of the day and this represented a decline in her mental status. All other labs were pending. Unable to obtain a radial ABG, I was able to draw arterial blood from her left femoral artery. An EKG was ordered which showed multifocal atrial tachycardia. The blood gas lab called with results and they were reported directly to me over the phone. pH: 7.00, PaCO2: 42.3, PO2 55.8, HCO3: 10.1. When I returned from the call, the nurse reported to me that her pulse remained irregular and within seconds of my arrival, we were unable to palpate any pulse. We witnessed her respirations cease. Patient was DNR and so CPR was not initiated. She was pronounced at 5:40 AM. Her attending physician has been notified. Past Medical History Cardiac Medical History: Reports: Hypertension Pulmonary Medical History: Reports: Chronic Obstructive Pulmonary Disease (COPD) Malignancy Medical History: Reports: Lung Cancer GI Medical History: Reports: Gastroesophageal Reflux Disease Psychiatric Medical History: Reports: Depression Past Surgical History Past Surgical History: Reports: Other - Tracheostomy, lobectomy Social History Smoking Status: Former Smoker Frequency of Alcohol Use: None Hx Recreational Drug Use: No Drugs: None Hx Prescription Drug Abuse: No - Advance Directive Resuscitation Status: Do Not Resuscitate Family History Family History: Reviewed & Not Pertinent Parental Family History Reviewed: No Children Family History Reviewed: No Sibling(s) Family History Reviewed.: No Medication/Allergy Home Medications: Alprazolam [Xanax 0.5 mg Tablet] 0.5 mg PO QHS 04/03/19 Escitalopram Oxalate [Lexapro 10 mg Tablet] 10 mg PO DAILY 04/03/19 Furosemide [Lasix 20 mg Tablet] 20 mg PO DAILY 04/03/19 Levothyroxine Sodium 88 mcg PO Q6AM 04/03/19 Metoprolol Succinate [Toprol Xl 25 mg Tab.sr] 25 mg PO DAILY 04/03/19 Omeprazole 40 mg PO DAILY 04/03/19 Pregabalin 50 mg PO QHS 04/03/19 Fexofenadine HCl [Chrissie Allergy] 180 mg PO DAILY 10/17/19 Hydrochlorothiazide 12.5 mg PO DAILY 10/18/19 Cholecalciferol (Vitamin D3) [Vitamin D3 1000 Unit Tablet] 1,000 units PO DAILY 10/19/19 Allergies/Adverse Reactions: adhesive tape Allergy (Verified 10/18/19 19:36) iodine Allergy (Verified 10/18/19 19:36) Physical Exam Vital Signs: Temp Pulse Resp BP Pulse Ox 97.5 F 78 20 83/50 L 82 L 10/21/19 03:34 10/21/19 03:34 10/21/19 03:34 10/21/19 03:34 10/21/19 03:34 Intake & Output 10/19/19 10/20/19 10/21/19 06:59 06:59 06:59 Intake Total 2900 2573 Output Total 125 0 Balance 2775 2573 Weight 59.7 kg 64.6 kg 64.6 kg Physical Exam: Physical exam described above. Mouth exam: PRESENT: dry mucosa Teeth exam: PRESENT: edentulous Throat exam: PRESENT: other - Open tracheostomy. Neck exam: ABSENT: JVD, tracheal deviation Results Laboratory Results: 10/18/19 19:05 10/18/19 19:05 10/21/19 05:15 Carbonic Acid 1.27 HCO3/H2CO3 Ratio 7:1 ABG pH 7.00 L* ABG pCO2 42.3 ABG pO2 55.8 L ABG HCO3 10.1 L ABG O2 Saturation 71.9 L ABG Base Excess -19.4 FiO2 70% 10/18/19 19:05 Troponin I 0.023 Impressions: Hip/Pelvis X-Ray 10/18/19 19:47 IMPRESSION: Osteopenia. Probable fracture of the right superior and inferior pubic rami. Lower Extremity CT 10/18/19 21:14 IMPRESSION: 1. No acute fracture of the right hip. 2. Soft tissue contusion overlying the right hip. Venous Doppler Study 10/19/19 00:00 IMPRESSION: NO EVIDENCE DVT OR SVT IN EITHER LEG. Head CT 10/19/19 18:00 IMPRESSION: Involutional changes with mild chronic microvascular ischemia. No acute intracranial imaging findings. EVIDENCE OF ACUTE STROKE: NO.
--- NOTE | 2019-10-23 10:59 | EKG REPORT ---
SEVERITY:- ABNORMAL ECG - A FIB RIGHT BUNDLE BRANCH BLOCK : Confirmed by: Bina Martinez 23-Oct-2019 10:57:38
== END 2019-10-21 09:30 | DRG 641 ==
LOC: ER 19:03 → OBSVTOIN 23:45 → EH 23:45 → 4N 10-19 01:30 → 3S 10-20
PROVIDERS: ADMIT Internal Medicine Geriatric Medicine; ATTEND Internal Medicine Geriatric Medicine
DX: E87.1 Hypo-osmolality and hyponatremia (principal); S32.511A Fracture of superior rim of right pubis, initial encounter for closed fracture; S32.591A Other specified fracture of right pubis, initial encounter for closed fracture; R53.1 Weakness; Z66 Do not resuscitate; M79.604 Pain in right leg; I10 Essential (primary) hypertension; J44.9 Chronic obstructive pulmonary disease, unspecified; K21.9 Gastro-esophageal reflux disease without esophagitis; I48.91 Unspecified atrial fibrillation; D50.9 Iron deficiency anemia, unspecified; M85.80 Other specified disorders of bone density and structure, unspecified site; W06.XXXA Fall from bed, initial encounter; Y93.89 Activity, other specified; Y92.013 Bedroom of single-family (private) house as the place of occurrence of the external cause; Z93.0 Tracheostomy status; Z85.118 Personal history of other malignant neoplasm of bronchus and lung
CPT/HCPCS: 36415; 70450; 80053; 82803; 84484; 85025; 85379; 85610; 85730; 93005; 93010; 93970; 96374; 99285; G0378; J1650; J2270; J3490; J7030; J7040